=== PATIENT | female | born 1940 | race African-American/Black ===

== ENCOUNTER 2016-10-21 00:35 | Observation (INO) | payer OTHER ==
--- NOTE | 2016-10-21 01:17 | PDOC ---
History of Present Illness - History of Present Illness Initial Comments: 10/21/16 03:08 The patient is a 76 year old female with a PMHx of AFib, HTN who presents to the ED with a dog bite on her left hand. Patient states her dog jumped at her and she protected herself with her hands, and the dog subsequently bit her. He left thumb, third and fourth fingers had abrasions and lacerations. Her fourth finger was bleeding heavily, with a deep cut and swelling. She has no other complaints. <Celine Caldwell - Last Filed: 10/21/16 03:08> <Shira Pereyra - Last Filed: 10/21/16 07:06> <Angelica Casillas - Last Filed: 10/21/16 12:48> - General Stated Complaint: DOG BITE Time Seen by Provider: 10/21/16 01:17 Past History <Celine Caldwell - Last Filed: 10/21/16 03:08> - Past Medical History Cardiac Disorders: Yes (AF) HTN: Yes Suicide Attempt (Hx): No - Surgical History Abdominal Surgery: Yes (HERNIA) Orthopedic Surgery: Yes (right foot bunionectomy) - Immunization History Immunization Up to Date: Yes - Psycho/Social/Smoking Cessation Hx Anxiety: No Suicidal Ideation: No Smoking History: Never smoked Have you smoked in the past 12 months: No Hx Alcohol Use: No Drug/Substance Use Hx: No Substance Use Type: None Hx Substance Use Treatment: No <Shira Pereyra - Last Filed: 10/21/16 07:06> <Angelica Casillas - Last Filed: 10/21/16 12:48> - Past Medical History Allergies/Adverse Reactions: Allergies Allergy/AdvReac Type Severity Reaction Status Date / Time No Known Allergies Allergy Verified 07/24/16 12:49 Home Medications: Ambulatory Orders Atorvastatin Ca [Lipitor] 20 mg PO HS #30 tablet 06/21/16 Metoprolol Succinate [Toprol XL -] 25 mg PO DAILY #30 tab.sr.24h 06/21/16 Hydrocodone/Acetaminophen [[place] 5-325 Tablet] 1 each PO QID #20 tablet MDD 4 Tramadol HCl 50 mg PO BID PRN 07/18/16 Warfarin Sodium 6 mg PO HS 10/21/16 Review of Systems - Review of Systems Comments:: 10/21/16 03:08 GENERAL/CONSTITUTIONAL: No fever or chills. No weakness. HEAD, EYES, EARS, NOSE AND THROAT: No change in vision. No ear pain or discharge. No sore throat. CARDIOVASCULAR: No chest pain or shortness of breath. RESPIRATORY: No cough, wheezing, or hemoptysis. GASTROINTESTINAL: No nausea, vomiting, diarrhea or constipation. GENITOURINARY: No dysuria, frequency, or change in urination. MUSCULOSKELETAL: No joint or muscle swelling or pain. No neck or back pain. SKIN: Left finger abrasions and lacerations. No rash NEUROLOGIC: No headache, vertigo, loss of consciousness, or change in strength/ sensation. ENDOCRINE: No increased thirst. No abnormal weight change. HEMATOLOGIC/LYMPHATIC: No anemia, easy bleeding, or history of blood clots. ALLERGIC/IMMUNOLOGIC: No hives or skin allergy. <Celine Caldwell - Last Filed: 10/21/16 03:08> *Physical Exam - Vital Signs Last Vital Signs Temp Pulse Resp BP Pulse Ox 97.1 F L 68 20 146/84 98 10/21/16 01:25 10/21/16 01:25 10/21/16 01:25 10/21/16 01:25 10/21/16 01:25 - Physical Exam Comments: 10/21/16 03:09 GENERAL: Awake, alert, and fully oriented, in no acute distress HEAD: No signs of trauma EYES: PERRLA, EOMI, sclera anicteric, conjunctiva clear ENT: Auricles normal inspection, hearing grossly normal, nares patent, oropharynx clear without exudates. Moist mucosa NECK: Normal ROM, supple, no lymphadenopathy, JVD, or masses LUNGS: Breath sounds equal, clear to auscultation bilaterally. No wheezes, and no crackles HEART: Regular rate and rhythm, normal S1 and S2, no murmurs, rubs or gallops ABDOMEN: Soft, nontender, normoactive bowel sounds. No guarding, no rebound. No masses EXTREMITIES: Normal range of motion, no edema. No clubbing or cyanosis. No cords, erythema, or tenderness NEUROLOGICAL: Cranial nerves II through XII grossly intact. Normal speech, normal gait SKIN: Swelling and large laceration that is deep with warmth dorsal aspect on left index finger at PIP point. Proximal phalanx puncture wound on left thumb. Two puncture wounds on dorsal aspect of third finger. Warm, Dry, normal turgor, no rashes or lesions noted. <Celine Caldwell - Last Filed: 10/21/16 03:08> - Vital Signs Last Vital Signs Temp Pulse Resp BP Pulse Ox 98.1 F 82 18 156/74 97 10/21/16 06:00 10/21/16 08:14 10/21/16 08:14 10/21/16 08:14 10/21/16 08:14 <Angelica Casillas - Last Filed: 10/21/16 12:48> ED Treatment Course - LABORATORY CBC & Chemistry Diagram: 10/21/16 02:15 10/21/16 02:15 - ADDITIONAL ORDERS Additional order review: Laboratory Results 10/21/16 10/21/16 10/21/16 02:20 02:15 02:15 INR 1.73 H D PTT (Actin FS) 45.4 H D Sodium 140 Potassium 4.0 Chloride 103 Carbon Dioxide 28 Anion Gap 9 BUN 18 Creatinine 0.7 Creat Clearance w eGFR > 60 Random Glucose 84 Calcium 9.4 Total Bilirubin 0.4 AST 22 ALT 28 Alkaline Phosphatase 102 D Total Protein 7.6 Albumin 3.9 D 10/21/16 02:15 RBC 4.67 D MCV 73.2 L MCHC 31.2 L RDW 17.7 H D MPV 8.6 D Neutrophils % 61.7 Lymphocytes % 24.7 D Monocytes % 9.8 Eosinophils % 2.9 D Basophils % 0.9 <Celine Caldwell - Last Filed: 10/21/16 03:08> - LABORATORY CBC & Chemistry Diagram: 10/21/16 02:15 10/21/16 02:15 <Shira Pereyra - Last Filed: 10/21/16 07:06> - LABORATORY CBC & Chemistry Diagram: 10/21/16 02:15 10/21/16 02:15 - ADDITIONAL ORDERS Additional order review: Laboratory Results 10/21/16 10/21/16 10/21/16 02:20 02:15 02:15 INR 1.73 H D PTT (Actin FS) 45.4 H D Sodium 140 Potassium 4.0 Chloride 103 Carbon Dioxide 28 Anion Gap 9 BUN 18 Creatinine 0.7 Creat Clearance w eGFR > 60 Random Glucose 84 Calcium 9.4 Total Bilirubin 0.4 AST 22 ALT 28 Alkaline Phosphatase 102 D Total Protein 7.6 Albumin 3.9 D 10/21/16 02:15 RBC 4.67 D MCV 73.2 L MCHC 31.2 L RDW 17.7 H D MPV 8.6 D Neutrophils % 61.7 Lymphocytes % 24.7 D Monocytes % 9.8 Eosinophils % 2.9 D Basophils % 0.9 - Medications Given in the ED: ED Medications Discontinued Medications Generic Name Dose Route Start Last Admin Trade Name Freq PRN Reason Stop Dose Admin Diphtheria/Tetanus/Acell Pertussis 0.5 ml 10/21/16 05:29 10/21/16 06:08 Adacel Adolescent/Adult - IM 10/21/16 05:30 0.5 ml .ONCE ONE Administration Ampicillin Sodium/Sulbactam 100 mls @ 200 mls/hr 10/21/16 02:10 10/21/16 05:27 Sodium 1.5 gm/ Sodium Chloride IVPB 10/21/16 02:39 200 mls/hr ONCE ONE Administration Vancomycin HCl 1,000 mg/ 250 mls @ 250 mls/hr 10/21/16 02:10 10/21/16 02:33 Dextrose IVPB 10/21/16 03:09 250 mls/hr ONCE ONE Administration Protocol Ketorolac Tromethamine 30 mg 10/21/16 08:19 10/21/16 08:46 Toradol Injection - IVPUSH 10/21/16 08:20 30 mg ONCE ONE Administration Morphine Sulfate 2 mg 10/21/16 03:57 10/21/16 04:14 Morphine Injection - IVPUSH 10/21/16 03:58 2 mg ONCE ONE Administration <Angelica Casillas - Last Filed: 10/21/16 12:48> Medical Decision Making - Medical Decision Making 10/21/16 07:06 Pt comes with dog bite to her left hand. 4th finger is sweollen and mangled. 6hrs later, I am still awaiting XR finger and CXR Labs are normal, however, pt will require admission for IV abx. She received unasyn and vancomycin I will sign her out to the day ER doc, who will check xrays and admit patient to the hospitalist. Depending on XRAY, ortho vs plastic surgery will be contacted. <Shira ePreyra - Last Filed: 10/21/16 07:06> - Medical Decision Making 10/21/16 12:45 Received sign out from Dr Pereyra to f/u xray and admit to hospital for IV antibiotics after pt was bitten by the family dog. Pt is rt handed, bite is on her left hand, the 4th finger has open wound around the joint that was irrigated by NK Jailene but wound is directly over the joint, sutures not applied, wound is about 1 in in length with a piece of skin missing, dsg applied to area and pt admitted for iv antibiotics, no fx noted on xray. 10/21/16 12:47 <Angelica Casillas - Last Filed: 10/21/16 12:48> *DC/Admit/Observation/Transfer - Attestations Scribe Attestion: 10/21/16 03:09 Documentation prepared by Celine Caldwell, acting as medical assistant ob gyn for Shira Pereyra MD. <Celine Caldwell - Last Filed: 10/21/16 03:08> <Shira Pereyra - Last Filed: 10/21/16 07:06> - Discharge Dispostion Admit: Yes <Angelica Casillas - Last Filed: 10/21/16 12:48> Diagnosis at time of Disposition: Dog bite - Discharge Dispostion Condition at time of disposition: Stable - Referrals
[2016-10-21 01:27] VITALS: BMI 24.6
[2016-10-21] MEDS ORDERED: AMPICILLIN NA/SULBACTAM NA 1.5 GM in SODIUM CHLORIDE 100 ML IVPB ONE (02:10)
[2016-10-21] MEDS ORDERED: VANCOMYCIN 1,000 MG in DEXTROSE 5%-WATER - 250 ML IVPB ONE (02:10)
[2016-10-21] MEDS ORDERED: VANCOMYCIN 1 GRAM (PRE-DOCKED) 250 ML IVPB ONE (02:26)
[2016-10-21 02:37] LABS: BASOPHIL 0.9 % (0-2.0); EOSINOPHIL 2.9 % (0-4.5); MCH 22.8 pg (25.7-33.7); MCHC 31.2 g/dl (32.0-36.0); MEAN CELL VOLUME 73.2 fl (80-96); MEAN PLT VOLUME 8.6 fl (7.5-11.1); NEUTROPHILS 61.7 % (42.8-82.8); PLATELET COUNT 290 K/MM3 (134-434); RDW 17.7 % (11.6-15.6); WHITE BLOOD COUNT 7.7 K/mm3 (4.0-10.0)
[2016-10-21 02:50] LABS: INR 1.73 (0.82-1.09); PROTHROMBIN TIME (PATIENT) 19.3 SEC (9.98-11.88)
[2016-10-21 03:01] LABS: ALBUMIN 3.9 g/dl (3.4-5.0); ANION GAP 9 (8-16); CALCIUM 9.4 mg/dL (8.5-10.1); CO2 28 mmol/L (21-32); CREATININE 0.7 mg/dL (0.55-1.02); GLUCOSE,RANDOM 84 mg/dL (74-106); SGOT/AST 22 U/L (15-37); SGPT/ALT 28 U/L (12-78)
[2016-10-21 03:03] LABS: ALK PHOS 102 U/L (45-117); BILIRUBIN,TOTAL 0.4 mg/dL (0.2-1.0); TOT PROT 7.6 g/dl (6.4-8.2)
[2016-10-21] MEDS ORDERED: morphine CARPU-JECT 2 MG/1 ML DISP.SYRIN IVPUSH ONE (03:57)
[2016-10-21] MEDS ORDERED: morphine CARPU-JECT 2 MG/1 ML DISP.SYRIN ONE (04:11)
[2016-10-21] MEDS ORDERED: DIPHTH,PERTUSS(ACELL),TET VAC 0.5 ML VIAL IM ONE (05:29)
[2016-10-21] MEDS ORDERED: KETOROLAC TROMETHAMINE 30 MG/1 ML VIAL IVPUSH ONE (08:19)
[2016-10-21] MEDS ORDERED: KETOROLAC TROMETHAMINE 30 MG/1 ML VIAL ONE (08:43)
[2016-10-21] MEDS ORDERED: ZOLPIDEM TARTRATE 5 MG TABLET PO PRN (11:16)
[2016-10-21] MEDS ORDERED: ACETAMINOPHEN 325 MG TABLET (FP) PO PRN (11:16)
[2016-10-21] MEDS ORDERED: KETOROLAC TROMETHAMINE 15 MG/ML VIAL IVPUSH PRN (11:20)
[2016-10-21] MEDS ORDERED: METOPROLOL SUCCINATE 50 MG TAB.SR.24H (FP) ONE (11:33)
[2016-10-21] MEDS ORDERED: PANTOPRAZOLE 40 MG TABLET (FP) ONE (11:33)
[2016-10-21] MEDS: METOPROLOL SUCCINATE 25 MG TAB.SR.24H (FP) PO SCH (11:39)
[2016-10-21] MEDS: PANTOPRAZOLE 20 MG TABLET (FP) PO SCH (11:39)
--- NOTE | 2016-10-21 11:48 | HP ---
CHIEF COMPLAINT: PCP: HISTORY OF PRESENT ILLNESS: 76 year old presents today after being bitten by her sons dog at home. Reports bite to left index finger. She decided to seek medical help because she noticed swelling and bleeding from the site of laceration. ER course was notable for: (1) XRAY (2) Tetanus shot (3) Recent Travel: NO PAST MEDICAL HISTORY: A FIB PAST SURGICAL HISTORY: Right Ovarian Cyst Dental Surgery Social History: Smoking:NO Alcohol:NO Drugs: NO Family History: HTN parents Allergies No Known Allergies Allergy (Verified 07/24/16 12:49) HOME MEDICATIONS: Home Medications Medication Instructions Recorded Atorvastatin Ca [Lipitor] 20 mg PO HS #30 tablet 06/21/16 Metoprolol Succinate [Toprol XL -] 25 mg PO DAILY #30 tab.sr.24h 06/21/16 Warfarin Na [Coumadin -] 9 mg PO HS #30 tablet 06/21/16 Hydrocodone/Acetaminophen [[place] 1 each PO QID #20 tablet MDD 4 07/18/16 5-325 Tablet] Tramadol HCl 50 mg PO BID PRN 07/18/16 REVIEW OF SYSTEMS CONSTITUTIONAL: Absent: fever, chills, diaphoresis, generalized weakness, malaise, loss of appetite, weight change HEENT: Absent: rhinorrhea, nasal congestion, throat pain, throat swelling, difficulty swallowing, mouth swelling, ear pain, eye pain, visual changes CARDIOVASCULAR: Absent: chest pain, syncope, palpitations, irregular heart rate, lightheadedness , peripheral edema RESPIRATORY: Absent: cough, shortness of breath, dyspnea with exertion, orthopnea, wheezing, stridor, hemoptysis GASTROINTESTINAL: Absent: abdominal pain, abdominal distension, nausea, vomiting, diarrhea, constipation, melena, hematochezia GENITOURINARY: Absent: dysuria, frequency, urgency, hesitancy, hematuria, flank pain, genital pain MUSCULOSKELETAL: Absent: myalgia, arthralgia, Left index MCP swelling , SKIN: Laceration over left index PIP joint , 1 cm , bleeding HEMATOLOGIC/IMMUNOLOGIC: Absent: easy bleeding, easy bruising, lymphadenopathy, frequent infections ENDOCRINE: Absent: unexplained weight gain, unexplained weight loss, heat intolerance, cold intolerance NEUROLOGIC: Absent: headache, focal weakness or paresthesias, dizziness, unsteady gait, seizure, mental status changes, bladder or bowel incontinence PSYCHIATRIC: Absent: anxiety, depression, suicidal or homicidal ideation, hallucinations. PHYSICAL EXAMINATION GENERAL: Awake, alert, and fully oriented, in no acute distress. HEAD: Normal with no signs of trauma. EYES: Pupils equal, round and reactive to light, extraocular movements intact, sclera anicteric, conjunctiva clear. No lid lag. EARS, NOSE, THROAT: Ears normal, nares patent, oropharynx clear without exudates. Moist mucous membranes. NECK: Normal range of motion, supple without lymphadenopathy, JVD, or masses. LUNGS: Breath sounds equal, clear to auscultation bilaterally. No wheezes, and no crackles. No accessory muscle use. HEART: Regular rate and rhythm, normal S1 and S2 without murmur, rub or gallop. ABDOMEN: Soft, nontender, not distended, normoactive bowel sounds, no guarding, no rebound, no masses. No hepatomegaly or splenomegaly. MUSCULOSKELETAL: Left index MCP swelling UPPER EXTREMITIES: 2+ pulses, warm, well-perfused. Laceration over left index PIP joint , 1 cm , bleeding. NV intact. Limited ROM due to pain LOWER EXTREMITIES: 2+ pulses, warm, well-perfused. No calf tenderness. No peripheral edema. NEUROLOGICAL: Cranial nerves II-XII intact. Normal speech. Normal gait. PSYCHIATRIC: Cooperative. Good eye contact. Appropriate mood and affect. SKIN: Warm, dry, normal turgor, no rashes or lesions noted. CBC, BMP 10/21/16 02:15 10/21/16 02:15 Hand XR - no fractures , no gas ASSESSMENT/PLAN: 1. Left index finger dog bite - NV intact, laceration needs to be irrigated and sutured. This was discussed with EDP. NO signs of cellulitis now, however there is mild erythema over MCP and bleeding ( on coumadin) . IV vancomycin and Unasyn was given in ER. No known risk for MRSA. Tetanus shot was given. - will hospitalize for observation - frequent Neurovascular checks - laceration to be sutured - monitor for bleeding and cellulitis - demarcate the area of erythema over MCP - oral Augmentin BID - if improves and no signs of cellulitis may d/c in am for further OP follow up with Hand Surgery 2. History of AFIB - rate controlled , INR is subtheraputic . - coumadin 10mg today and will repeat INR in am - c/w metoprolol 4. Pain control with toradol and tylenol PRN. 5. GI ppx with Pantoprazole 6. DVT PPX - already on anticoagulation Visit type - Emergency Visit Emergency Visit: Yes ED Registration Date: 10/21/16 Care time: The patient presented to the Emergency Department on the above date and was hospitalized for further evaluation of their emergent condition. - New Patient This patient is new to me today: Yes Date on this admission: 10/21/16 - Critical Care Critical Care patient: No
[2016-10-21] MEDS ORDERED: PNEUMOC 13-VAL CONJ-DIP CRM/PF 0.5 ML DISP.SYRIN IM ONE (12:30)
[2016-10-21] MEDS: AMOX TR/POT CLAV 875MG/125MG TABLETS (FP) PO SCH (17:17)
[2016-10-21] MEDS ORDERED: WARFARIN NA 3 MG TABLET PO SCH ×2 (18:00)
[2016-10-21] MEDS ORDERED: ATORVASTATIN CA 20 MG TABLET (FP) PO SCH (22:00)
[2016-10-22 05:54] VITALS: TEMP 97.9
[2016-10-22] MEDS: AMOX TR/POT CLAV 875MG/125MG TABLETS (FP) PO SCH (08:05)
[2016-10-22 08:57] LABS: MCH 23.3 pg (25.7-33.7); MCHC 31.6 g/dl (32.0-36.0); MEAN CELL VOLUME 73.7 fl (80-96); MEAN PLT VOLUME 8.4 fl (7.5-11.1); PLATELET COUNT 245 K/MM3 (134-434); RDW 17.7 % (11.6-15.6); WHITE BLOOD COUNT 9.6 K/mm3 (4.0-10.0)
[2016-10-22 09:09] LABS: INR 2.31 (0.82-1.09); PROTHROMBIN TIME (PATIENT) 25.8 SEC (9.98-11.88)
[2016-10-22] MEDS: METOPROLOL SUCCINATE 25 MG TAB.SR.24H (FP) PO SCH (10:11)
[2016-10-22] MEDS: PANTOPRAZOLE 20 MG TABLET (FP) PO SCH (10:11)
[2016-10-22 10:47] VITALS: BP 131/97; PULSE 77
--- NOTE | 2016-10-22 10:54 | DS ---
Physical Exam: SUBJECTIVE: Patient seen and examined OBJECTIVE: Vital Signs Period Temp Pulse Resp BP Sys/Neri Pulse Ox Last 24 Hr 97.6 F-98.8 F 60-119 16-18 101-173/40-97 98 PHYSICAL EXAM GENERAL: The patient is awake, alert, and fully oriented, in no acute distress. HEAD: Normal with no signs of trauma. NECK: Trachea midline, full range of motion, supple. LUNGS: Breath sounds equal, clear to auscultation bilaterally, no wheezes, no crackles, no accessory muscle use. HEART: Regular rate and rhythm, S1, S2 without murmur, rub or gallop. ABDOMEN: Soft, nontender, nondistended, normoactive bowel sounds, no guarding, no rebound, no hepatosplenomegaly, no masses. EXTREMITIES: 2+ pulses, warm, well-perfused, no edema. Decreased swelling of left hand. NEUROLOGICAL: Cranial nerves II through XII grossly intact. Normal speech, gait not observed. SKIN: Warm, dry, normal turgor. Laceration of left second finger with minimal erythema of finger. No bleeding or drainage from wound. LABS Laboratory Results - last 24 hr 10/22/16 10/22/16 07:50 07:50 WBC 9.6 RBC 4.33 Hgb 10.1 L Hct 31.9 L MCV 73.7 L MCHC 31.6 L RDW 17.7 H Plt Count 245 MPV 8.4 INR 2.31 H D HOSPITAL COURSE: Date of Admission:10/21/16 Date of Discharge: 10/22/16 Minutes to complete discharge: 30 Discharge Summary Reason For Visit: DOG BITE Current Active Problems Cellulitis of finger of left hand (Acute) Dog bite (Acute) Anxiety and depression (Chronic) Chronic pain in right shoulder (Chronic) GERD (gastroesophageal reflux disease) (Chronic) HLD (hyperlipidemia) (Chronic) HTN (hypertension) (Chronic) Paroxysmal atrial fibrillation (Chronic) Rheumatoid arthritis (Chronic) Hospital Course: This is a 76-year-old woman who presented to the ER on the morning of October 21 after her dog bit her left hand. She sustained a laceration to her left second finger and minor wounds to her left first and third fingers. X-ray of the left fingers showed degenerative changes, loss of bone density, soft tissue swelling involving the second finger, no fracture, subluxation or foreign body. She was treated with Unasyn and Vancomycin, and she was given a tetanus booster. All the wounds were cleansed with Betadine and irrigated with sterile saline. No sutures were indicated. Steri-strip and a Telfa dressing were applied to the left second finger laceration. She was placed in observation. She was treated with Augmentin and her usual medications were continued. The next day, the dressings were removed. All wounds appeared clean. There was no bleeding noted. Swelling and erythema were noted to have improved significantly. The left second finger laceration was irrigated with sterile saline and cleaned with Betadine. One Steri-strip was noted. A clean Telfa dressing was applied. Bacitracin was applied to the wounds on the first and third fingers. She is being discharged home on October 22. She will complete 10 days of Augmentin. She is advised to keep her left second finger dry and to apply Bacitracin to her left first and third fingers twice a day. She is advised to see her primary care provider tomorrow. Condition: Stable - Instructions Diet, Activity, Other Instructions: You may resume activity as tolerated and follow a low sodium diet. Apply Bacitracin to the wounds on your left 1st and 3rd fingers twice a day. Keep your left 2nd finger dry. Please call your primary care provider's office for an appointment to be seen tomorrow. Referrals: Manuel Acosta PA [Primary Care Provider] - 10/23/16 Disposition: HOME - Home Medications Comprehensive Discharge Medication List: Ambulatory Orders Atorvastatin Ca [Lipitor] 20 mg PO HS #30 tablet 06/21/16 Metoprolol Succinate [Toprol XL -] 25 mg PO DAILY #30 tab.sr.24h 06/21/16 Hydrocodone/Acetaminophen [[place] 5-325 Tablet] 1 each PO QID #20 tablet MDD 4 Tramadol HCl 50 mg PO BID PRN 07/18/16 Warfarin Sodium 6 mg PO HS 10/21/16 Amox-Tr/K Cl [Augmentin 875-125mg Tablet -] 1 tab PO BID@0800,1730 #18 tablet This patient is new to me today: Yes Date on this admission: 10/22/16 Emergency Visit: Yes ED Registration Date: 10/21/16 Care time: The patient presented to the Emergency Department on the above date and was hospitalized for further evaluation of their emergent condition. Critical Care patient: No - Discharge Referral Referred to [facility] No
[2016-10-22] MEDS ORDERED: BACITRACIN 30 GM TUBE TOPICAL OINTMENT TP SCH (11:15)
== END 2016-10-22 11:36 | disposition home or self-care (01) ==
LOC: JER 00:35 → JERBED 09:39 → J6S 11:58
PROVIDERS: ADMIT Internal Medicine; ATTEND Internal Medicine
DX: S61.251A Open bite of left index finger without damage to nail, initial encounter (principal); S61.211A Laceration without foreign body of left index finger without damage to nail, initial encounter; W54.0XXA Bitten by dog, initial encounter; Y93.89 Activity, other specified; Y92.098 Other place in other non-institutional residence as the place of occurrence of the external cause; I48.91 Unspecified atrial fibrillation; F41.8 Other specified anxiety disorders; K21.9 Gastro-esophageal reflux disease without esophagitis; E78.5 Hyperlipidemia, unspecified; M06.80 Other specified rheumatoid arthritis, unspecified site
CPT/HCPCS: 36415; 71020-TC; 73140-TC-LT; 80053; 85025; 85027; 85610; 85730; 90670; 99285-25; G0378

== ENCOUNTER 2016-11-04 00:12 | Emergency (ER) | payer OTHER ==
[2016-11-04 00:31] VITALS: BP 135/69; PULSE 86; TEMP 98.2; BMI 24.0
[2016-11-04 00:54] LABS: BASOPHIL 1.1 % (0-2.0); EOSINOPHIL 1.9 % (0-4.5); MEAN PLT VOLUME 7.8 fl (7.5-11.1); NEUTROPHILS 62.3 % (42.8-82.8); PLATELET COUNT 315 K/MM3 (134-434); RDW 18.2 % (11.6-15.6); WHITE BLOOD COUNT 8.3 K/mm3 (4.0-10.0)
[2016-11-04 01:09] LABS: INR 1.38 (0.82-1.09); PROTHROMBIN TIME (PATIENT) 15.3 SEC (9.98-11.88)
[2016-11-04 01:19] LABS: ALBUMIN 3.5 g/dl (3.4-5.0); ANION GAP 9 (8-16); BILIRUBIN,TOTAL 0.3 mg/dL (0.2-1.0); CALCIUM 9.1 mg/dL (8.5-10.1); CO2 28 mmol/L (21-32); CREATININE 0.6 mg/dL (0.55-1.02); GLUCOSE,RANDOM 138 mg/dL (74-106); SGOT/AST 17 U/L (15-37); SGPT/ALT 21 U/L (12-78); TOT PROT 6.7 g/dl (6.4-8.2)
[2016-11-04 01:21] LABS: ALK PHOS 84 U/L (45-117); TROPONIN I 0.02 ng/ml (0.00-0.05)
--- NOTE | 2016-11-04 02:40 | PDOC ---
History of Present Illness - General Chief Complaint: Palpitations Stated Complaint: PALPITATIONS Time Seen by Provider: 11/04/16 00:30 History Source: Patient Exam Limitations: No Limitations - History of Present Illness Initial Comments: 11/04/16 02:35 76yo Female patient presents to ED with daughter c/o palpitations. Patient states eating dinner very late, after eating dinner she began feeling palpitations. She reports taking her blood pressure medications and coumadin, but wanted to come to ED for evaluation. Patient denies CP, chest pressure, hemoptysis, rectal bleeding, hematuria, fever, abd pain, n/v/d, constipation, back pain, diff breathing, rash, or any other complaints at this time. Cardiology: ASHISH Acosta. Presenting Symptoms: Other (Palpitations) Timing/Duration: reports: intermittent Severity/Quality: reports: mild Location: denies: substernal, central, epigastric, shoulder, back, abdomen, other Chest Pain Radiation: denies: no radiation, jaw, arms, neck, shoulders, back, sternal notch, epigastric, other Activities at Onset: denies: none, exertion, emotional upset, rest, sleep, no specific activity, eating, working, sexual intercourse, other Prior Chest Pain/Cardiac Workup: denies: No prior chest pain, No prior cardiac workup, Non-cardiac, Angina, Cardiac Cath, Cardiolye Scan, Echocardiography, Heart Attack, Pulmonary Embolism, Stress Test, Thallium Scan, Other Modifying Factors: worse with: antacids, breathing, coughing, defecating, eating , exercise, lying down, morphine, movement, nitroglycerin, oxygen, palpation, rest, other Nitro Today/Relief: No: no nitro taken today, 0.4 mg x 1, 0.4 mg x 2, 0.4 mg x 3 , 0.4 mg x 4, provided by EMS, provided by ED, provided at home, no relief, mild relief, complete relief ASA Contraindications (Core Measure): Yes: Receiving Warfarin. No: Allergy, Other, Active Blding w/i 24 hrs., Plavix Past History - Travel Traveled outside of the country in the last 30 days: No Close contact w/someone who was outside of country & ill: No - Past Medical History Allergies/Adverse Reactions: Allergies Allergy/AdvReac Type Severity Reaction Status Date / Time No Known Allergies Allergy Verified 11/04/16 00:29 Home Medications: Ambulatory Orders Atorvastatin Ca [Lipitor] 20 mg PO HS #30 tablet 06/21/16 Metoprolol Succinate [Toprol XL -] 25 mg PO DAILY #30 tab.sr.24h 06/21/16 Hydrocodone/Acetaminophen [[place] 5-325 Tablet] 1 each PO QID #20 tablet MDD 4 Tramadol HCl 50 mg PO BID PRN 07/18/16 Warfarin Sodium 6 mg PO HS 10/21/16 Amox-Tr/K Cl [Augmentin 875-125mg Tablet -] 1 tab PO BID@0800,1730 #18 tablet Cardiac Disorders: Yes (AF) HTN: Yes Suicide Attempt (Hx): No - Surgical History Abdominal Surgery: Yes (HERNIA) Orthopedic Surgery: Yes (RT FOOT) - Immunization History Immunization Up to Date: Yes - Psycho/Social/Smoking Cessation Hx Anxiety: No Suicidal Ideation: No Smoking History: Never smoked Have you smoked in the past 12 months: No Information on smoking cessation initiated: No Hx Alcohol Use: No Drug/Substance Use Hx: No Substance Use Type: None Hx Substance Use Treatment: No Cardiac Specific PMH - Complaint Specific PMHX Abdominal Aortic Aneurysm: No Angina: No Cardiac Arrhythmia: No Cardiac Stent: No GERD: No Myocardial Infarction: No Pacemaker: No Pulmonary Embolus: No Valvular Heart Disease: No Peripheral Vascular Disease: No Review of Systems - Review of Systems Able to Perform ROS?: Yes Is the patient limited [place]an proficient: No Constitutional: No: Chills, Fever HEENTM: No: Blurred Vision, Double Vision, Nose Bleeding Respiratory: No: Cough, Orthopnea, Shortness of Breath, Stridor, Wheezing, Hemoptysis Cardiac (ROS): Yes: Palpitations. No: Chest Pain, Edema, Irregular Heart Rate, Lightheadedness, Syncope, Chest Tightness ABD/GI: No: Constipated, Diarrhea, Nausea, Poor Appetite, Poor Fluid Intake, Rectal Bleeding, Vomiting, Abdominal cramping, Tarry Stools : No: Dysuria, Discharge, Frequency, Flank Pain, Hematuria, Pain, Urgency Musculoskeletal: No: Back Pain Integumentary: No: Bruising, Erythema, Pallor, Rash Neurological: No: Headache, Numbness, Paresthesia, Seizure, Tingling, Tremors, Weakness, Unsteady Gait, Ataxia, Dizziness Hematologic/Lymphatic: Yes: Blood Clots, Easy Bleeding. No: Easy Bruising All Other Systems: Reviewed and Negative *Physical Exam - Vital Signs Last Vital Signs Temp Pulse Resp BP Pulse Ox 98.2 F 86 20 135/69 96 11/04/16 00:29 11/04/16 00:29 11/04/16 00:29 11/04/16 00:29 11/04/16 00:29 - Physical Exam General Appearance: Yes: Nourished, Appropriately Dressed. No: Apparent Distress, Mild Distress, Moderate Distress, Severe Distress HEENT: positive: EOMI, SHERICE, Normal ENT Inspection, Normal Voice, Symmetrical, TMs Normal, Scleral Icterus (L). negative: Pharyngeal Erythema, Tonsillar Exudate, Tonsillar Erythema, Nasal Congestion, Rhinorrhea, TM Bulging, TM Dull, TM Erythema Neck: positive: Trachea midline, Supple. negative: Rigid Respiratory/Chest: positive: Lungs Clear, Normal Breath Sounds. negative: Respiratory Distress, Accessory Muscle Use, Labored Respiration, Rapid RR, Wheezing Cardiovascular: positive: Regular Rhythm, Regular Rate Gastrointestinal/Abdominal: positive: Normal Bowel Sounds, Soft. negative: Distended, Guarding, Rebound, Tenderness Musculoskeletal: positive: Normal Inspection. negative: CVA Tenderness Extremity: positive: Normal Capillary Refill, Normal Inspection, Normal Range of Motion Integumentary: positive: Normal Color, Dry, Warm. negative: Pale, Rash, Swelling Neurologic: positive: blood bank coordinator II-XII NML intact, Fully Oriented, Alert, Normal Mood/ Affect, Normal Response, Motor Strength 5/5 Heart Score/ECG Review - History History: Slightly suspicious - Electrocardiogram EKG: Normal - Age Age: >/= 65 - Risk Factors Risk Factors Heart Score: Yes Hx Hypercholesterolemia, Yes Hx Hypertension Based on the list above the patient has:: 1-2 risk factors - Troponin Troponin: </= normal limit - Score Heart Score - Total: 3 - ECG Impressions Normal ECG: Yes Non-specific ST Elevation: No Ischemic Changes: No Bradycardia: No Torsades sravanthi Pointes: No WPW: No Comment:: 11/04/16 02:45 NSR- No ST elevations. ED Treatment Course - LABORATORY CBC & Chemistry Diagram: 11/04/16 00:36 11/04/16 00:36 - ADDITIONAL ORDERS Additional order review: Laboratory Results 11/04/16 11/04/16 00:36 00:36 INR 1.38 H D Sodium 143 Potassium 3.6 Chloride 106 Carbon Dioxide 28 Anion Gap 9 BUN 22 H D Creatinine 0.6 Creat Clearance w eGFR > 60 Random Glucose 138 H D Calcium 9.1 Total Bilirubin 0.3 D AST 17 D ALT 21 D Alkaline Phosphatase 84 Creatine Kinase 100 Troponin I 0.02 B-Natriuretic Peptide 139.42 H Total Protein 6.7 Albumin 3.5 11/04/16 00:36 RBC 4.21 MCV 72.0 L MCHC 32.0 RDW 18.2 H MPV 7.8 Neutrophils % 62.3 Lymphocytes % 26.4 Monocytes % 8.3 Eosinophils % 1.9 Basophils % 1.1 - RADIOLOGY Radiology Studies Ordered: Category Date Time Status CHEST PA & LAT [RAD] Stat Radiology 11/04/16 00:30 Taken *DC/Admit/Observation/Transfer Diagnosis at time of Disposition: Heart palpitations - Discharge Dispostion Disposition: HOME Condition at time of disposition: Improved Admit: No - Referrals Referrals: Kumar Early MD [Primary Care Provider] - - Patient Instructions Printed Discharge Instructions: DI for Palpitations Additional Instructions: FOLLOW UP WITH YOUR [employer] DRIVER ON SUNDAY. CALL TO SCHEDULE APPOINTMENT. CONTINUE TAKING YOUR MEDICATIONS PRESCRIBED. RETURN TO EMERGENCY DEPARTMENT IF YOU DEVELOP SUDDEN ONSET OF TROUBLE BREATHING, RECTAL BLEEDING, BLOOD IN SPUTUM, CHEST PAINS, NAUSEA W/ VOMITING OR ANY OTHER COMPLAINTS FOR FURTHER EVALUATION. Print Language: SLOVAK
--- NOTE | 2016-11-04 14:45 | EKG ---
Test Reason : Blood Pressure : / mmHG Vent. Rate : 072 BPM Atrial Rate : 072 BPM P-R Int : 154 ms QRS Dur : 094 ms QT Int : 382 ms P-R-T Axes : 056 041 043 degrees QTc Int : 418 ms NORMAL SINUS RHYTHM NONSPECIFIC ST ABNORMALITY NONSPECIFIC INTRAVENTRICULAR CONDUCTION DEFECT ABNORMAL ECG WHEN COMPARED WITH ECG OF 18-JUL-2016 04:36, NO SIGNIFICANT CHANGE WAS FOUND Confirmed by YASEMIN SEO MD ([id number]) on 11/04/2016 2:44:47 PM Referred By: Confirmed By:YASEMIN SEO MD
== END 2016-11-04 03:06 | disposition home or self-care (01) ==
LOC: JER 00:12
DX: R00.2 Palpitations (principal); I48.91 Unspecified atrial fibrillation; I10 Essential (primary) hypertension; Z79.01 Long term (current) use of anticoagulants; Z79.84 Long term (current) use of oral hypoglycemic drugs
CPT/HCPCS: 36415; 71020-TC; 80053; 82550; 83880; 84484; 85025; 85610; 93005; 93010; 99281-25

== ENCOUNTER 2017-07-23 20:46 | Emergency (ER) | payer OTHER ==
--- NOTE | 2017-07-23 20:52 | PDOC ---
Rapid Medical Evaluation Time Seen by Provider: 07/23/17 20:49 Medical Evaluation: Allergies Allergy/AdvReac Type Severity Reaction Status Date / Time No Known Allergies Allergy Verified 11/04/16 00:29 07/23/17 20:49 I have performed a brief in person evaluation of this patient. The patient presents with chief complaint of : cough headache productive phlegm saw PMD yesterday Pertinent PE findings: none I have ordered the following: chest xray The patient will proceed to the ER for further evaluation. Discharge Disposition - Referrals Referrals: Sulema Montgomery MD [Primary Care Provider] - - Patient Instructions - Post Discharge Activity
[2017-07-23 20:53] VITALS: BP 182/97; PULSE 86; TEMP 98.1; BMI 24.7
[2017-07-23] MEDS ORDERED: ALBUTEROL SO4 2.5/IPRATROPIUM 0.5 INH SOL 3 ML VIAL.NEB. NEB ONE ×2 (21:27→21:31)
[2017-07-23] MEDS ORDERED: ONDANSETRON *ODT* 4 MG TABLET SL ONE (21:31)
--- NOTE | 2017-07-23 21:31 | PDOC ---
History of Present Illness - General History Source: Patient Exam Limitations: No Limitations - History of Present Illness Initial Comments: 07/23/17 21:51 Patient is a 76 year old female with a past medical history of A FIB, who presents to the ED with complaints of SOB that began this afternoon. Patient reports experiencing Patient reports experiencing productive cough with phlegm, nausea, vomiting and post nasal drip 1 week ago with no signs of subsiding. She reports going to PCP this morning for cold symptoms but states she left appointment feeling worse than before. Patient reports experiencing SOB while in ED waiting for X ray. Denies vision change, Headache. Denies dizziness, lightheadedness. Denies chills. Denies contact with sick individuals, out of state travel. Allergies: None Social history: No smoking. No alcohol. No illicit drugs. Surgical history: Right Ovarian Cyst, Dental Surgery PMD: Dr. Montgomery <Jeremiah Guillory - Last Filed: 07/23/17 21:51> <Elsa Corey - Last Filed: 07/23/17 22:50> - General Chief Complaint: Respiratory Stated Complaint: VOMITING Time Seen by Provider: 07/23/17 20:49 Past History <Jeremiah Guillory - Last Filed: 07/23/17 21:51> - Past Medical History Cardiac Disorders: Yes (AF) COPD: No HTN: Yes Hypercholesterolemia: Yes - Surgical History Abdominal Surgery: Yes (HERNIA) Orthopedic Surgery: Yes (RT FOOT) - Immunization History Immunization Up to Date: Yes - Suicide/Smoking/Psychosocial Hx Smoking History: Never smoked Have you smoked in the past 12 months: No Hx Alcohol Use: No Drug/Substance Use Hx: No Substance Use Type: None Hx Substance Use Treatment: No <Elsa Corey - Last Filed: 07/23/17 22:50> - Past Medical History Allergies/Adverse Reactions: Allergies Allergy/AdvReac Type Severity Reaction Status Date / Time No Known Allergies Allergy Verified 07/23/17 20:50 Home Medications: Ambulatory Orders Atorvastatin Ca [Lipitor] 20 mg PO HS #30 tablet 06/21/16 Metoprolol Succinate [Toprol XL -] 25 mg PO DAILY #30 tab.sr.24h 06/21/16 Rivaroxaban [Xarelto -] 1 tab PO HS 04/18/17 Albuterol Sulfate Inhaler - [Ventolin HFA Inhaler -] 1 - 2 inh PO Q4H #1 inhaler 07/23/17 Azithromycin [Zithromax 250mg Tablets -] 250 mg PO UTDICT #6 tab 07/23/17 Chlorpheniramine/Dextromethorp [Coricidin Hbp Cough & Cold Tab] 1 each PO Q6H # 20 tablet 07/23/17 Review of Systems - Review of Systems Comments:: 07/23/17 21:51 GENERAL/CONSTITUTIONAL: No fever or chills. No weakness. HEAD, EYES, EARS, NOSE AND THROAT: No change in vision. No ear pain or discharge. No sore throat. GASTROINTESTINAL: +Nausea, +Vomiting. No diarrhea or constipation. GENITOURINARY: No dysuria, frequency, or change in urination. CARDIOVASCULAR: +SOB. No chest pain RESPIRATORY: +Coughing. +Wheezing. No hemoptysis. MUSCULOSKELETAL: No joint or muscle swelling or pain. No neck or back pain. SKIN: No rash NEUROLOGIC: No headache, vertigo, loss of consciousness, or change in strength/ sensation. ENDOCRINE: No increased thirst. No abnormal weight change. HEMATOLOGIC/LYMPHATIC: No anemia, easy bleeding, or history of blood clots. ALLERGIC/IMMUNOLOGIC: No hives or skin allergy. All Other Systems: Reviewed and Negative <Jeremiah Guillory - Last Filed: 07/23/17 21:51> *Physical Exam - Vital Signs Last Vital Signs Temp Pulse Resp BP Pulse Ox 98.1 F 86 20 182/97 98 07/23/17 20:50 07/23/17 20:50 07/23/17 20:50 07/23/17 20:50 07/23/17 20:50 - Physical Exam Comments: 07/23/17 21:51 GENERAL: Awake, alert, and fully oriented, in no acute distress HEAD: No signs of trauma EYES: PERRLA, EOMI, sclera anicteric, conjunctiva clear ENT: +Exudates on left tonsil. Auricles normal inspection, hearing grossly normal, nares patent. Moist mucosa NECK: Normal ROM, supple, no lymphadenopathy, JVD, or masses LUNGS: +Bilateral wheezing with diminished aeration to bases. Breath sounds equal. No crackles HEART: Regular rate and rhythm, normal S1 and S2, no murmurs, rubs or gallops ABDOMEN: Soft, nontender, normoactive bowel sounds. No guarding, no rebound. No masses EXTREMITIES: Normal range of motion, no edema. No clubbing or cyanosis. No cords, erythema, or tenderness NEUROLOGICAL: Cranial nerves II through XII grossly intact. Normal speech, normal gait SKIN: Warm, Dry, normal turgor, no rashes or lesions noted. <Jeremiah Guillory - Last Filed: 07/23/17 21:51> - Vital Signs Last Vital Signs Temp Pulse Resp BP Pulse Ox 98.1 F 86 20 182/97 98 07/23/17 20:50 07/23/17 20:50 07/23/17 20:50 07/23/17 20:50 07/23/17 20:50 <Elsa Corey - Last Filed: 07/23/17 22:50> ED Treatment Course - Medications Given in the ED: ED Medications Discontinued Medications Generic Name Dose Route Start Last Admin Trade Name Freq PRN Reason Stop Dose Admin Albuterol/Ipratropium 1 amp 07/23/17 21:31 07/23/17 21:38 Duoneb - NEB 07/23/17 21:32 1 amp ONCE ONE Administration <Jeremiah Guillory - Last Filed: 07/23/17 21:51> - LABORATORY CBC & Chemistry Diagram: 07/23/17 21:30 07/23/17 21:30 <Elsa Corey - Last Filed: 07/23/17 22:50> Medical Decision Making - Medical Decision Making 07/23/17 21:32 Pt. is a 76 y/o female with PMH of HTN who presents to the ED with a complaint of sore throat, subjective fevers, nausea, vomiting, and rhinorrhea for one week. She was seen by her doctor today and feels worse than when she went to the doctor. Pt. states she has had increased difficulty swallowing food. Aspiration pneumonia vs. viral syndrome. Physical exam with exudates on tonsils and scattered wheezing b/l. Less likely strep; however, will obtain culture. Blood pressure elevated, however pt endorses taking Robitussin with her blood pressure meds. 1. CBC, CMP 2. CXR 3. Duoneb; zofran. 4. Re-evaluate 07/23/17 21:59 Pt. reports that she feels a large amount of mucous down the back of her throat and that she is having difficulty breathing. Lung sounds still with wheezing b/ l. Oxygen applied 4L O2. 07/23/17 22:46 Pt. feeling much better after O2 placement. Pt. most likely feeling short of breath d/t mucus production. CXR negative for pneumonia. Lab work is unremarkable. Slight elevation of the WBC at 11; however no shift. Pt. most likely with a URI and underlying bronchitis. Will treat with abx, inhaler, and cough syrup at this time and will d/c home. Pt. given strict return precautions and told to f/u with her PCP tomorrow <Elsa Corey - Last Filed: 07/23/17 22:50> *DC/Admit/Observation/Transfer - Attestations Scribe Attestion: 07/23/17 21:52 Documentation prepared by Jeremiah Guillory, acting as medical claims processor for Wan Alvarez MD, MD/DO. <Jeremiah Guillroy - Last Filed: 07/23/17 21:51> - Discharge Dispostion Admit: No <Elsa Corey - Last Filed: 07/23/17 22:50> Diagnosis at time of Disposition: Acute bronchitis Qualifiers: Bronchitis organism: unspecified organism Qualified Code(s): J20.9 - Acute bronchitis, unspecified - Discharge Dispostion Disposition: HOME Condition at time of disposition: Stable - Prescriptions Prescriptions: Albuterol Sulfate Inhaler - [Ventolin HFA Inhaler -] 1 - 2 inh PO Q4H #1 inhaler Azithromycin [Zithromax 250mg Tablets -] 250 mg PO UTDICT #6 tab Chlorpheniramine/Dextromethorp [Coricidin Hbp Cough & Cold Tab] 1 each PO Q6H # 20 tablet - Referrals Referrals: Sulema Montgomery MD [Primary Care Provider] - - Patient Instructions Printed Discharge Instructions: DI for Acute Bronchitis Additional Instructions: You have bronchitis. Your chest x-ray was negative for pnuemonia. Please take the Z-pack as prescribed (antibiotic). You were also prescribed an albuterol inhaler. Please use this every 4 hours to help with your breathing. Do not take the robitussin you have at home as this can raise your blood pressure. You were prescribed Cordicin HBP. Please take one pill every 6 hours as needed to help with your symptoms. Warm steamy showers can also help with decongestion. Drink plenty of fluids. Follow up with your primary care doctor tomorrow. Return to the ED if you have worsening shortness of breath, difficulty breathing , chest pain, or have any changes in your symptoms. - Post Discharge Activity
[2017-07-23] MEDS ORDERED: ONDANSETRON *ODT* 4 MG TABLET ONE (21:48)
[2017-07-23 21:57] LABS: BASOPHIL 0.8 % (0-2.0); EOSINOPHIL 1.9 % (0-4.5); MCH 27.6 pg (25.7-33.7); MCHC 32.8 g/dl (32.0-36.0); MEAN CELL VOLUME 84.2 fl (80-96); MEAN PLT VOLUME 8.1 fl (7.5-11.1); PLATELET COUNT 278 K/MM3 (134-434); RDW 14.2 % (11.6-15.6); WHITE BLOOD COUNT 11.3 K/mm3 (4.0-10.0)
[2017-07-23 22:23] LABS: ALBUMIN 3.9 g/dl (3.4-5.0); ANION GAP 5 (8-16); CALCIUM 9.4 mg/dL (8.5-10.1); CO2 30 mmol/L (21-32); CREATININE 0.7 mg/dL (0.55-1.02); GLUCOSE,RANDOM 110 mg/dL (74-106); SGOT/AST 19 U/L (15-37); SGPT/ALT 27 U/L (12-78)
[2017-07-23 22:25] LABS: ALK PHOS 116 U/L (45-117); BILIRUBIN,TOTAL 0.9 mg/dL (0.2-1.0); TOT PROT 7.8 g/dl (6.4-8.2)
== END 2017-07-23 22:44 | disposition home or self-care (01) ==
LOC: JERFT 20:46
PROC: 3E0F7GC Introduction of Other Therapeutic Substance into Respiratory Tract, Via Natural or Artificial Opening (ICD-10-PCS; principal; 2017-07-23)
DX: J20.9 Acute bronchitis, unspecified (principal); I48.91 Unspecified atrial fibrillation; Z79.01 Long term (current) use of anticoagulants; I10 Essential (primary) hypertension; E78.00 Pure hypercholesterolemia, unspecified
CPT/HCPCS: 36415; 71020-TC; 80053; 85025; 87070; 87430; 99281-25

== ENCOUNTER 2017-10-12 15:17 | Emergency (ER) | payer OTHER ==
--- NOTE | 2017-10-12 15:32 | PDOC ---
Rapid Medical Evaluation Time Seen by Provider: 10/12/17 15:27 Medical Evaluation: Allergies Allergy/AdvReac Type Severity Reaction Status Date / Time No Known Allergies Allergy Verified 07/23/17 20:50 I have performed a brief in-person evaluation of this patient. The patient presents with a chief complaint of: low back pain Pertinent physical exam findings: b/l low back pain worse on right, blood in urine I have ordered the following: UA/culture The patient will proceed to the ED for further evaluation.
[2017-10-12 15:33] VITALS: PULSE 82; BMI 23.9
[2017-10-12] MEDS ORDERED: ACETAMINOPHEN 1000 MG/100 ML VIAL (NON FORMULARY) IVPB ONE (18:56)
[2017-10-12] MEDS ORDERED: diazePAM 5 MG TABLET PO ONE (18:57)
--- NOTE | 2017-10-12 19:10 | PDOC ---
History of Present Illness - General History Source: Patient, Old Records Exam Limitations: No Limitations - History of Present Illness Initial Comments: 10/12/17 20:13 "The patient is a 77 year old female, with a significant past medical history of AFIB on Xarelto, Anxiety and GERD, who presents to the emergency department with lower back pain for 3 weeks and 1 episode of hematuria. She describes her back pain as a sharp sensation, with radiation from her lower back to her legs b /l. She notes that the pain is worsened when she lays flat and alleviated when she sits up. She reports having a trip and fall 2 weeks ago that made her pain worse She notes that the pain was there prior to the fall. She reports 1 episode of blood in her urine yesterday but clear urine since. The patient denies fevers, chest pain, shortness of breath, headache and dizziness. Denies chills, nausea, vomit, diarrhea and constipation. Denies dysuria, frequency, urgency. Allergies: None Social history: No smoking. No alcohol. No illicit drugs. Surgical history: Right Ovarian Cyst, Dental Surgery PMD: Dr. Montgomery " <Hugo Rogers - Last Filed: 10/12/17 20:13> - History of Present Illness Initial Comments: 10/12/17 20:15 Denies LE weakness/numbness, urine/stool retention or incontinence. <Clare De León - Last Filed: 10/13/17 01:23> - General Stated Complaint: FEVER, WEAKNESS Time Seen by Provider: 10/12/17 15:27 Past History <Hugo Rogers - Last Filed: 10/12/17 20:13> - Past Medical History Cardiac Disorders: Yes (AF) COPD: No HTN: Yes Hypercholesterolemia: Yes - Surgical History Abdominal Surgery: Yes (HERNIA) Orthopedic Surgery: Yes (RT FOOT) - Immunization History Immunization Up to Date: Yes - Suicide/Smoking/Psychosocial Hx Smoking History: Never smoked Have you smoked in the past 12 months: No Hx Alcohol Use: No Drug/Substance Use Hx: No Substance Use Type: None Hx Substance Use Treatment: No <Clare De León - Last Filed: 10/13/17 01:23> - Past Medical History Allergies/Adverse Reactions: Allergies Allergy/AdvReac Type Severity Reaction Status Date / Time No Known Allergies Allergy Verified 10/12/17 15:29 Home Medications: Ambulatory Orders Atorvastatin Ca [Lipitor] 20 mg PO HS #30 tablet 06/21/16 Metoprolol Succinate [Toprol XL -] 25 mg PO DAILY #30 tab.sr.24h 06/21/16 Rivaroxaban [Xarelto -] 1 tab PO HS 04/18/17 Albuterol Sulfate Inhaler - [Ventolin HFA Inhaler -] 1 - 2 inh PO Q4H #1 inhaler 07/23/17 Azithromycin [Zithromax 250mg Tablets -] 250 mg PO UTDICT #6 tab 07/23/17 Chlorpheniramine/Dextromethorp [Coricidin Hbp Cough & Cold Tab] 1 each PO Q6H # 20 tablet 07/23/17 Tramadol HCl 50 mg PO BID PRN #6 tablet MDD 2 pills 10/13/17 Review of Systems - Review of Systems Able to Perform ROS?: Yes Comments:: 10/12/17 20:13 "GENERAL/CONSTITUTIONAL: No fever. No chills. No weakness. HEAD, EYES, EARS, NOSE AND THROAT: No change in vision. No ear pain or discharge. No sore throat. GASTROINTESTINAL: No nausea, vomiting, diarrhea or constipation. GENITOURINARY: (+) Hematuria. No dysuria, frequency. CARDIOVASCULAR: No chest pain or shortness of breath. RESPIRATORY: No cough, wheezing, or hemoptysis. MUSCULOSKELETAL: (+) Back pain. No joint or muscle swelling or pain. No neck pain. SKIN: No rash NEUROLOGIC: No headache, vertigo, loss of consciousness, or change in strength/ sensation. ENDOCRINE: No increased thirst. No abnormal weight change. HEMATOLOGIC/LYMPHATIC: No anemia, easy bleeding, or history of blood clots. ALLERGIC/IMMUNOLOGIC: No hives or skin allergy." <Hugo Rogers - Last Filed: 10/12/17 20:13> *Physical Exam - Vital Signs Last Vital Signs Temp Pulse Resp BP Pulse Ox 98.5 F 82 19 155/77 100 10/12/17 15:30 10/12/17 15:30 10/12/17 15:30 10/12/17 15:30 10/12/17 15:30 - Physical Exam Comments: 10/12/17 20:13 """GENERAL: Awake, alert, and fully oriented, in no acute distress HEAD: No signs of trauma EYES: PERRLA, EOMI, sclera anicteric, conjunctiva clear ENT: Auricles normal inspection, hearing grossly normal, nares patent, oropharynx clear without exudates. Moist mucosa NECK: Normal ROM, supple, no lymphadenopathy, JVD, or masses LUNGS: Breath sounds equal, clear to auscultation bilaterally. No wheezes, and no crackles HEART: Regular rate and rhythm, normal S1 and S2, no murmurs, rubs or gallops ABDOMEN: Soft, nontender, normoactive bowel sounds. No guarding, no rebound. No masses EXTREMITIES: Normal range of motion, no edema. No clubbing or cyanosis. No cords, erythema, or tenderness BACK: No midline spinal tenderness in cervical/thoracic region. +Lumbar midline and paraspinal ttp. +straight leg test on R NEUROLOGICAL: Normal speech, cranial nerves intact, negative pronator drift, 5/ 5 strength in all 4 extremities, normal sensation to light touch in all 4 extremities, normal cerebellar exam, antalgic but steady gait, normal reflexes and tone SKIN: Warm, Dry, normal turgor, no rashes or lesions noted. """ <Hugo Rogers - Last Filed: 10/12/17 20:13> - Vital Signs Last Vital Signs Temp Pulse Resp BP Pulse Ox 98.5 F 82 19 155/77 100 10/12/17 15:30 10/12/17 15:30 10/12/17 15:30 10/12/17 15:30 10/12/17 15:30 <Clare De León - Last Filed: 10/13/17 01:23> ED Treatment Course - LABORATORY CBC & Chemistry Diagram: 10/12/17 19:43 10/12/17 19:43 - ADDITIONAL ORDERS Additional order review: 10/12/17 19:43 RBC 4.23 MCV 83.7 MCHC 32.1 RDW 15.4 MPV 8.1 Neutrophils % 79.1 Lymphocytes % 10.6 D Monocytes % 10.0 Eosinophils % 0.1 D Basophils % 0.2 - Medications Given in the ED: ED Medications Discontinued Medications Generic Name Dose Route Start Last Admin Trade Name Freq PRN Reason Stop Dose Admin Acetaminophen 1,000 mg 10/12/17 18:56 10/12/17 19:53 Ofirmev Injection - IVPB 10/12/17 18:57 1,000 mg ONCE ONE Administration Diazepam 5 mg 10/12/17 18:57 10/12/17 19:53 Valium - PO 10/12/17 18:58 5 mg ONCE ONE Administration <KenHugogino Goode - Last Filed: 10/12/17 20:13> - LABORATORY CBC & Chemistry Diagram: 10/12/17 19:43 10/12/17 19:43 - RADIOLOGY Radiology Studies Ordered: Category Date Time Status LUMBAR SPINE CT W/O CONTRAST [CT] Stat CT Scan 10/12/17 18:55 Ordered <DanielaWiley sandovalnatasha - Last Filed: 10/13/17 01:23> Medical Decision Making - Medical Decision Making 10/12/17 19:05 77-year-old female multiple medical problems presents to emergency department with progressive lower back pain for weeks. She reports the pain was worse today which prompted her to come into the emergency department. Vitals are unremarkable. Exam with midline lumbar and paraspinal lumbar tenderness to palpation. Pt with no weakness, sensory deficits in LE. REflexes wnl. Patient able to ambulate with an antalgic but steady gait assisted by a cane. Will obtain a CT of the lumbar spine to evaluate for any fractures and obtain labs and a urinalysis given one episode of blood in urine. We'll also give pain medication and reassess. 10/13/17 00:00 Pain improved s/p tylenol, tramadol ordered. Labs with leukocytosis to 15.6, UA neg for infection. Pt with no infectious sxs and thus leukocytosis possibly stress response due to pain. CT lumbar spine read by [facility] with degenerative disc disease with no fractures. CT also shows loop shaped density in pelvis, possibly in vasculature. 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 Upon discussion with the patient, she states she had tubal ligation reversal 40+ years ago and at the time, wiring was placed to assist with the reversal. She is aware that the wiring is still present in her pelvis. I have referred her to [facility] for f/u and evaluation to see if wiring needs removal, although per the patients history, the wiring has been present for >40yrs. 10/13/17 01:11 Pt feels better, requests DC home. Daughter will drive her home. I discussed the physical exam findings, ancillary test results and final diagnoses with the patient. I answered all of the patient's questions. The patient was satisfied with the care received and felt comfortable with the discharge plan and treatment plan. The patient will call their primary care physician within 24 hours to arrange follow-up and will return to the Emergency Department with any new, persistent or worsening symptoms. <Clare De León - Last Filed: 10/13/17 01:23> *DC/Admit/Observation/Transfer - Attestations Scribe Attestion: 10/12/17 20:14 Documentation prepared by Hugo Rogers, acting as medical equipment sales for Clare De León MD <Hugo Rogers - Last Filed: 10/12/17 20:13> - Discharge Dispostion Admit: No - Attestations Physician Attestion: 10/13/17 01:17 I, Dr. Clare De León MD, attest that this document has been prepared under my direction and personally reviewed by me in its entirety. I further attest, that it accurately reflects all work, treatment, procedures and medical decision -making performed by me. <Clare De León - Last Filed: 10/13/17 01:23> Diagnosis at time of Disposition: Back pain - Discharge Dispostion Disposition: HOME Condition at time of disposition: Stable - Referrals Referrals: Rosalba Sands MD [Staff Physician] - - Patient Instructions Additional Instructions: Take 2 tylenol 500mg tablets every 6 hours as needed for pain. If tylenol does not control your pain, you may take a tramadol pill. Tramadol can make you dizzy and drowsy so do not drive if you are using this medication. Follow up with your primary doctor within 1 week for your back pain and for a repeat urine test to check for bleeding. As we discussed, your CT scan showed a wire in your pelvis that is likely left from the surgery to reverse your tubal ligation. We are referring you to the [facility] doctor for follow up on this issue as this wire may need to be removed. Please call to make an appointment within 1-2 weeks. Return to the emergency department if you have any new, worsening, or concerning symptoms.
[2017-10-12] MEDS ORDERED: diazePAM 5 MG TABLET ONE (19:32)
[2017-10-12] MEDS ORDERED: ACETAMINOPHEN INJECTION 100 ML IVPB ONE (19:33)
[2017-10-12 20:06] LABS: BASO % 0.2 % (0-2.0); EOS % 0.1 % (0-4.5); HEMATOCRIT 35.4 % (32.4-45.2); HEMOGLOBIN 11.4 GM/dL (10.7-15.3); LYMPH % 10.6 % (8-40); MCH 26.8 pg (25.7-33.7); MCHC 32.1 g/dl (32.0-36.0); MEAN CELL VOLUME 83.7 fl (80-96); MEAN PLT VOLUME 8.1 fl (7.5-11.1); NEUT % 79.1 % (42.8-82.8); PLATELET COUNT 300 K/MM3 (134-434); RBC 4.23 M/mm3 (3.60-5.2); RDW 15.4 % (11.6-15.6); WHITE BLOOD COUNT 15.7 K/mm3 (4.0-10.0)
[2017-10-12 20:44] LABS: ALBUMIN 3.5 g/dl (3.4-5.0); ANION GAP 9 (8-16); BILIRUBIN,TOTAL 0.9 mg/dL (0.2-1.0); BLOOD UREA NITROGEN 11 mg/dL (7-18); CALCIUM 8.8 mg/dL (8.5-10.1); CHLORIDE 102 mmol/L (98-107); CO2 27 mmol/L (21-32); CREATININE 0.6 mg/dL (0.55-1.02); GLUCOSE,RANDOM 112 mg/dL (74-106); POTASSIUM 4.3 mmol/L (3.5-5.1); SGOT/AST 24 U/L (15-37); SGPT/ALT 22 U/L (12-78); SODIUM 138 mmol/L (136-145); TOT PROT 7.8 g/dl (6.4-8.2)
[2017-10-12 20:45] LABS: ALK PHOS 96 U/L (45-117); INR 1.27 (0.82-1.09); PROTHROMBIN TIME (PATIENT) 14.3 SEC (9.98-11.88)
[2017-10-12 20:48] LABS: ACTIVATED PTT 35.5 SECONDS (26.9-34.4)
[2017-10-12 22:45] LABS: URINE APPEARANCE CLEAR; URINE BILIRUBIN NEGATIVE (NEGATIVE); URINE BLOOD 2+ (NEGATIVE); URINE COLOR LTYELLOW; URINE GLUCOSE (UA) NEGATIVE (NEGATIVE); URINE KETONE TRACE (NEGATIVE); URINE LEUK ESTERASE NEGATIVE (NEGATIVE); URINE NITRITE NEGATIVE (NEGATIVE); URINE UROBILINOGEN NEGATIVE mg/dL (0.2-1.0)
[2017-10-12 22:46] LABS: URINE PROTEIN 1+ (NEGATIVE)
[2017-10-12 22:47] LABS: CALCIUM OXALATE CRYSTALS RARE /hpf (NONE SEEN); URINE BACTERIA RARE /hpf (NONE SEEN)
[2017-10-13] MEDS ORDERED: traMADol HCL 50 MG TABLET PO ONE (00:26)
[2017-10-13] MEDS ORDERED: traMADol HCL 50 MG TABLET ONE (00:46)
[2017-10-13 01:42] VITALS: BP 155/76; TEMP 98.4
== END 2017-10-13 01:42 | disposition home or self-care (01) ==
LOC: JER 15:17
PROC: 3E033NZ Introduction of Analgesics, Hypnotics, Sedatives into Peripheral Vein, Percutaneous Approach (ICD-10-PCS; principal; 2017-10-12)
DX: M54.5 Low back pain (principal); I48.91 Unspecified atrial fibrillation; Z79.01 Long term (current) use of anticoagulants; I10 Essential (primary) hypertension; E78.5 Hyperlipidemia, unspecified; F41.9 Anxiety disorder, unspecified; K21.9 Gastro-esophageal reflux disease without esophagitis
CPT/HCPCS: 36415; 72131-TC; 80053; 81003; 81015; 85025; 85610; 85730; 87086; 96374; 99284-25

== ENCOUNTER 2017-12-21 10:35 | Observation (INO) | payer OTHER ==
--- NOTE | 2017-12-21 11:29 | PDOC ---
History of Present Illness - General Chief Complaint: Headache Stated Complaint: LOW BACK PAIN Time Seen by Provider: 12/21/17 10:50 History Source: Patient, Family - History of Present Illness Initial Comments: 12/21/17 11:32 Patient is a 77 year old female with a PMH of Atrial Fibrillation (on Xarelto), GERD, HTN who presents to our ED today c/o acute onset of headache as well as neck and back pain. Patient states the headache is diffuse, 10/10, and worsens with movement. Endorses some blurry vision which has been occurring for 2-3 months as well as neck pain which is B/L. Denies any fevers, vomiting, AMS. Denies any previous h/o similar headache. Back pain started 2 months previous and has progressed up her spine to her neck and patient often notes she uses a neck pillow to alleviate the pain with some relief. The patient denies fevers, chest pain, shortness of breath. Denies chills, nausea, vomit, diarrhea and constipation. Denies dysuria, frequency, urgency. As per EMR patient was evaluated in our ED in 09/[address] showed degenerative disc disease but no acute fracture/pathology. Allergies: None Social history: No smoking. No alcohol. No illicit drugs. Surgical history: Right Ovarian Cyst, Dental Surgery PMD: Dr. Montgomery Past History - Past Medical History Allergies/Adverse Reactions: Allergies Allergy/AdvReac Type Severity Reaction Status Date / Time No Known Allergies Allergy Verified 12/21/17 10:39 Home Medications: Ambulatory Orders Atorvastatin Ca [Lipitor] 20 mg PO HS #30 tablet 06/21/16 Metoprolol Succinate [Toprol XL -] 25 mg PO DAILY #30 tab.sr.24h 06/21/16 Rivaroxaban [Xarelto -] 1 tab PO HS 04/18/17 Albuterol Sulfate Inhaler - [Ventolin HFA Inhaler -] 1 - 2 inh PO Q4H #1 inhaler 07/23/17 Chlorpheniramine/Dextromethorp [Coricidin Hbp Cough & Cold Tab] 1 each PO Q6H # 20 tablet 07/23/17 Acetaminophen [Tylenol .Regular Strength -] 650 mg PO Q4H PRN tablet 12/22/17 Amitriptyline HCl [Elavil -] 10 mg PO HS #30 tablet 12/22/17 Baclofen [Lioresal -] 5 mg PO BID #20 tablet 12/22/17 Diphenhydramine HCl [Benadryl Capsule -] 25 mg PO HS capsule 12/22/17 Cardiac Disorders: Yes (AF) COPD: No HTN: Yes Hypercholesterolemia: Yes Other medical history: BACK PAIN - Surgical History Abdominal Surgery: Yes (ABD SX) Orthopedic Surgery: Yes (RT FOOT) - Immunization History Immunization Up to Date: Yes - Suicide/Smoking/Psychosocial Hx Smoking History: Never smoked Have you smoked in the past 12 months: No Information on smoking cessation initiated: No Hx Alcohol Use: No Drug/Substance Use Hx: No Substance Use Type: None Hx Substance Use Treatment: No Review of Systems - Review of Systems Constitutional: No: Chills, Fever HEENTM: No: Recent change in vision Respiratory: No: Shortness of Breath Cardiac (ROS): Yes: Symptoms Reported. No: Chest Pain, Lightheadedness, Palpitations, Syncope ABD/GI: No: Constipated, Diarrhea, Nausea, Vomiting : No: Burning, Dysuria *Physical Exam - Vital Signs Last Vital Signs Temp Pulse Resp BP Pulse Ox 98.1 F 82 18 146/77 100 12/21/17 10:41 12/21/17 10:41 12/21/17 10:41 12/21/17 10:41 12/21/17 10:41 - Physical Exam General Appearance: Yes: Nourished, Thin HEENT: positive: EOMI, SHERICE, Hearing Grossly Normal. negative: Pharyngeal Erythema, Tonsillar Exudate, Tonsillar Erythema Neck: positive: Trachea midline, Supple Respiratory/Chest: positive: Lungs Clear Cardiovascular: positive: S1, S2. negative: Edema, JVD Vascular Pulses: Dorsalis-Pedis (R): 2+, Doralis-Pedis (L): 2+ Gastrointestinal/Abdominal: positive: Normal Bowel Sounds, Soft Musculoskeletal: negative: CVA Tenderness (R), CVA Tenderness (L) Extremity: positive: Normal Capillary Refill, Normal Inspection Integumentary: positive: Normal Color, Dry, Warm ED Treatment Course - LABORATORY CBC & Chemistry Diagram: 12/22/17 07:27 12/22/17 07:27 Medical Decision Making - Medical Decision Making 12/21/17 15:26 77 year old female presents with acute onset of headache and 2 month h/o progressively worsening neck pain. No focal neurologic deficits on PE. Will obtain CT head to r/o SAH as well as C-spine to r/o fracture/herniation. Reassess. CT Head negative for acute bleed. C-spine shows no acute fracture, degenerative disease. Leukocytosis 15. Suspected source likely urine. Will admit to inpatient medicine service for further evaluation. *DC/Admit/Observation/Transfer Diagnosis at time of Disposition: Neck pain - Discharge Dispostion Disposition: VNS/HOME HEALTH CARE Condition at time of disposition: Improved - Prescriptions - Referrals - Patient Instructions - Post Discharge Activity
--- NOTE | 2017-12-21 11:32 | PDOC ---
Attending Attestation - HPI HPI: 12/21/17 12:05 The patient is a 77 year old female with history of hypertension, GERD, atrial fibrillation on Xarelto, who presents to the ED complaining of headache with back pain and neck pain for some time, significantly worse upon waking up today. The patient states her pain is worse with movement and improved with rest. She also reports recently decreased appetite and 10 lb weight loss, she is unable to describe how long this has been going on. She also reports recent subjective fever and chills. No nausea, vomiting, or diaphoresis. No blurred vision or paresthesias. No chest pain or shortness of breath. - Physicial Exam PE: 12/21/17 12:15 Vitals: Triage vital signs reviewed General Appearance: No acute distress,thin body habitus, well developed Head: Atraumatic Eyes: Pupils equal reactive round, extraocular movement intact Neck: +b/l paraspinal neck tenderness to palpation, r>l; supple; No nuchal rigidity Chest Wall: Nontender Cardiac: Regular rate and rhythm, no murmurs, no rubs, no gallops Lungs: Clear to auscultation bilateral, good air movement bilaterally Abdomen: Soft, nondistended, normal bowel sounds, nontender to palpation Extremities: Full range of motion to all extremities, no cyanosis, clubbing, or edema Skin: Warm and dry, no rashes or lesions, no rash, no petechiae Psych: Normal mood, normal affect Documentation prepared by Alexandra Churchill, acting as medical staff services coordinator for Glenn Trivedi MD. <Alexandra Churchill - Last Filed: 12/21/17 12:39> - Resident Resident Name: Antonina Rivas - ED Attending Attestation I have performed the following: I have examined & evaluated the patient, The case was reviewed & discussed with the resident, I agree w/resident's findings & plan, Exceptions are as noted - Medical Decision Making 12/21/17 19:52 77 years old past medical history significant for hypertension and GERD Sonal Khan also presents to the ED with progressively worsening Actiq and neck pain. Patient has been using a soft collar to avoid movements to her neck with worsening muscular neck and head pain. Denies headache. Patient also endorses recent weight loss greater than 10 pounds, and multiple falls. Has non focal neuro exam. Imaging notable for multilevel degenerative disease Head CT negative for acute pathology Laboratory analysis not a lot notable for leukocytosis Given weight-loss progressively worsening symptoms multiple falls will admit to medicine for further evaluation of leukocytosis back discomfort and falls <Glenn Trivedi - Last Filed: 12/21/17 19:52> Heart Score/ECG Review #1 12/21/17 12:39 EKG performed at 1227 demonstrates rate of 77 bpm, rhythm of normal sinus rhythm , axis equal to normal. No T wave inversions, no ST elevations. <Alexandra Churchill - Last Filed: 12/21/17 12:39>
[2017-12-21] MEDS ORDERED: ACETAMINOPHEN 1000 MG/100 ML VIAL (NON FORMULARY) IVPB ONE (11:51)
[2017-12-21] MEDS ORDERED: METOCLOPRAMIDE HCL INJECTION 10 MG/2 ML VIAL IVPUSH ONE (11:51)
[2017-12-21] MEDS ORDERED: METOCLOPRAMIDE HCL INJECTION 10 MG/2 ML VIAL ONE (12:33)
[2017-12-21 13:04] LABS: BASO % 0.3 % (0-2.0); HEMATOCRIT 35.2 % (32.4-45.2); HEMOGLOBIN 11.5 GM/dL (10.7-15.3); LYMPH % 8.3 % (8-40); MCHC 32.5 g/dl (32.0-36.0); MEAN CELL VOLUME 83.1 fl (80-96); MEAN PLT VOLUME 7.9 fl (7.5-11.1); MONO % 9.9 % (3.8-10.2); NEUT % 81.5 % (42.8-82.8); PLATELET COUNT 375 K/MM3 (134-434); RBC 4.24 M/mm3 (3.60-5.2); RDW 15.1 % (11.6-15.6); WHITE BLOOD COUNT 15.2 K/mm3 (4.0-10.0)
[2017-12-21 13:27] LABS: INR 1.19 (0.82-1.09); PROTHROMBIN TIME (PATIENT) 13.5 SEC (9.7-13.0)
[2017-12-21 13:29] LABS: ACTIVATED PTT 38.7 SECONDS (26.9-34.4)
[2017-12-21 13:40] LABS: ALBUMIN 3.6 g/dl (3.4-5.0); ALK PHOS 83 U/L (45-117); ANION GAP 7 (8-16); BILIRUBIN,TOTAL 0.7 mg/dL (0.2-1.0); BLOOD UREA NITROGEN 9 mg/dL (7-18); CALCIUM 9.4 mg/dL (8.5-10.1); CHLORIDE 104 mmol/L (98-107); CO2 29 mmol/L (21-32); CREATININE 0.6 mg/dL (0.55-1.02); GLUCOSE,RANDOM 127 mg/dL (74-106); MAGNESIUM 2.2 mg/dL (1.8-2.4); POTASSIUM 4.1 mmol/L (3.5-5.1); SGOT/AST 15 U/L (15-37); SGPT/ALT 17 U/L (12-78); SODIUM 140 mmol/L (136-145); TOT PROT 7.7 g/dl (6.4-8.2)
[2017-12-21] MEDS ORDERED: ACETAMINOPHEN 325 MG TABLET (FP) PO PRN (15:43)
--- NOTE | 2017-12-21 16:22 | HP ---
Admitting History and Physical - Admission Chief Complaint: back and neck pain History of Present Illness: This is a 77 year old female with pmhx of P afib (xarelto), HTN, HLD, GERD, RA presented to the ED with worsening back and b/l neck pain with associated [place]. The patient has been having back pain for 2 weeks, denies trauma, although hx of falls. Today she awoke and the pain was referring to her bi lateral neck and R shoulder. She is unable to extend her neck, has increased pain when she looks right and has limited range of motion with the left side. Her son says when she wakes up in the morning her neck is fully flexed to her chest and she has to raise it up with her hands. PT states she had a fever 2 days ago. Denies cp, sob , abd pain, n/v. Her son said she hasn't been eating well following a surgery where her top row of teeth were removed and shes subsequently been having issues with proper denture fitting. History Source: Patient, Family Member Limitations to Obtaining History: No Limitations - Past Medical History Cardiovascular: Yes: AFIB Pulmonary: Yes: Bronchitis Gastrointestinal: Yes: GERD Rheumatology: Yes: Rheumatoid Arthritis - Past Surgical History Past Surgical History: Yes: Hernia Repair - Smoking History Smoking history: Never smoked Have you smoked in the past 12 months: No - Alcohol/Substance Use Hx Alcohol Use: No History of Substance Use: reports: None - Social History ADL: Independent History of Recent Travel: No Home Medications - Allergies Allergies/Adverse Reactions: Allergies Allergy/AdvReac Type Severity Reaction Status Date / Time No Known Allergies Allergy Verified 12/21/17 10:39 - Home Medications Home Medications: Ambulatory Orders Atorvastatin Ca [Lipitor] 20 mg PO HS #30 tablet 06/21/16 Metoprolol Succinate [Toprol XL -] 25 mg PO DAILY #30 tab.sr.24h 06/21/16 Rivaroxaban [Xarelto -] 1 tab PO HS 04/18/17 Albuterol Sulfate Inhaler - [Ventolin HFA Inhaler -] 1 - 2 inh PO Q4H #1 inhaler 07/23/17 Chlorpheniramine/Dextromethorp [Coricidin Hbp Cough & Cold Tab] 1 each PO Q6H # 20 tablet 07/23/17 Tramadol HCl 50 mg PO BID PRN #6 tablet MDD 2 pills 10/13/17 Review of Systems - Review of Systems Constitutional: reports: No Symptoms Eyes: reports: No Symptoms HENT: reports: No Symptoms Neck: reports: Pain on Movement, Stiffness Cardiovascular: reports: No Symptoms Respiratory: reports: No Symptoms Gastrointestinal: reports: No Symptoms Genitourinary: reports: No Symptoms Musculoskeletal: reports: Back Pain Integumentary: reports: No Symptoms Neurological: reports: Headache Endocrine: reports: No Symptoms Hematology/Lymphatic: reports: No Symptoms Psychiatric: reports: No Symptoms Physical Examination Vital Signs: Vital Signs Temperature 98.1 F 12/21/17 10:41 Pulse Rate 82 12/21/17 10:41 Respiratory Rate 18 12/21/17 10:41 Blood Pressure 146/77 12/21/17 10:41 O2 Sat by Pulse Oximetry (%) 100 12/21/17 10:41 Constitutional: Yes: No Distress Eyes: Yes: Conjunctiva Clear HENT: Yes: WNL Neck: Yes: Tenderness (pain R>L, limited rom 30 degrees) Cardiovascular: Yes: Regular Rate and Rhythm, S1, S2 Respiratory: Yes: Regular, CTA Bilaterally Gastrointestinal: Yes: Normal Bowel Sounds, Soft Renal/: Yes: WNL Musculoskeletal: Yes: Back Pain Extremities: Yes: WNL Edema: No Neurological: Yes: Alert, Oriented Psychiatric: Yes: Alert, Oriented Labs: CBC, BMP 12/21/17 12:28 12/21/17 12:28 Imaging - Results Cat Scan: Report Reviewed Problem List - Problems (1) Back pain Code(s): M54.9 - DORSALGIA, UNSPECIFIED (2) GERD (gastroesophageal reflux disease) Code(s): K21.9 - GASTRO-ESOPHAGEAL REFLUX DISEASE WITHOUT ESOPHAGITIS Qualifiers: Esophagitis presence: without esophagitis Qualified Code(s): K21.9 - Gastro -esophageal reflux disease without esophagitis (3) HLD (hyperlipidemia) Code(s): E78.5 - HYPERLIPIDEMIA, UNSPECIFIED (4) HTN (hypertension) Code(s): I10 - ESSENTIAL (PRIMARY) HYPERTENSION (5) Paroxysmal atrial fibrillation Code(s): I48.0 - PAROXYSMAL ATRIAL FIBRILLATION (6) Rheumatoid arthritis Code(s): M06.9 - RHEUMATOID ARTHRITIS, UNSPECIFIED Qualifiers: Rheumatoid arthritis location: shoulder Rheumatoid factor presence: unspecified presence Laterality: left Qualified Code(s): M06.9 - Rheumatoid arthritis, unspecified Assessment/Plan Assessment: 77 year old female admitted with worsening neck and back pain Plan: 1. Neck and back pain - CT scan noted, degenerative changes - Consider MRI cervical neck - Trial valium and ibuprofen x1 - R.o UTI - Neuro consulted 2. P afib - Metoprolol 25mg daily - Xarelto 3. HTN - BB 4. RA 5. DVT - On xarelto Visit type - Emergency Visit Emergency Visit: Yes Care time: The patient presented to the Emergency Department on the above date and was hospitalized for further evaluation of their emergent condition. - New Patient This patient is new to me today: Yes Date on this admission: 12/21/17 - Critical Care Critical Care patient: No Hospitalist Screening - Colonoscopy Questionnaire Colonoscopy Questionnaire: Colonoscopy Questionnaire - Patient: 50 - 75 years old and never had a screening colonoscopy: Unknown History of colon or rectal polyps, or CA: Unknown History of IBD, Crohn's disease or UC: Unknown History of abdominal radiation therapy as a child: Unknown - Relative: 1 with colon or rectal CA, or polyps at age 60 or younger: Unknown Colon or rectal CA diagnosed at age 45 or younger: Unknown Multiple relatives with colon or rectal CA: Unknown - Outcome: Screening Result: Negative Screen
[2017-12-21] MEDS ORDERED: IBUPROFEN 600 MG TABLET (FP) PO ONE (16:42)
[2017-12-21] MEDS ORDERED: diazePAM 2 MG TABLET PO ONE ×2 (17:00→20:45)
[2017-12-21] MEDS ORDERED: diphenhydrAMINE HCL 25 MG CAPSULE (FP) PO ONE ×2 (18:18→22:00)
[2017-12-21] MEDS ORDERED: BACLOFEN 10 MG TABLET (FP) PO PRN (18:18)
--- NOTE | 2017-12-21 18:29 | CON.NEURO ---
Consult - Past Medical History Cardio/Vascular: Yes: AFIB Pulmonary: Yes: Bronchitis Gastrointestinal: Yes: GERD Rheumatology: Yes: Rheumatoid Arthritis - Past Surgical History Past Surgical History: Yes: Hernia Repair - Alcohol/Substance Use Hx Alcohol Use: No History of Substance Use: reports: None - Smoking History Smoking history: Never smoked Have you smoked in the past 12 months: No - Social History ADL: Independent History of Recent Travel: No Home Medications - Allergies Allergies/Adverse Reactions: Allergies Allergy/AdvReac Type Severity Reaction Status Date / Time No Known Allergies Allergy Verified 12/21/17 10:39 - Home Medications Home Medications: Ambulatory Orders Atorvastatin Ca [Lipitor] 20 mg PO HS #30 tablet 06/21/16 Metoprolol Succinate [Toprol XL -] 25 mg PO DAILY #30 tab.sr.24h 06/21/16 Rivaroxaban [Xarelto -] 1 tab PO HS 04/18/17 Albuterol Sulfate Inhaler - [Ventolin HFA Inhaler -] 1 - 2 inh PO Q4H #1 inhaler 07/23/17 Chlorpheniramine/Dextromethorp [Coricidin Hbp Cough & Cold Tab] 1 each PO Q6H # 20 tablet 07/23/17 Tramadol HCl 50 mg PO BID PRN #6 tablet MDD 2 pills 10/13/17 Physical Exam-Neuro Vital Signs: Vital Signs Temperature 98.1 F 12/21/17 10:41 Pulse Rate 82 12/21/17 10:41 Respiratory Rate 18 12/21/17 10:41 Blood Pressure 146/77 12/21/17 10:41 O2 Sat by Pulse Oximetry (%) 99 12/21/17 12:00 Labs: CBC, BMP 12/21/17 12:28 12/21/17 12:28 INR, PTT INR 1.19 (0.82-1.09) H 12/21/17 12:28 Assessment/Plan cc Neck pain and difficulty moving her neck HPI 77 year old female history of atrial fibrillation on xarelto, htn, gerd, rheumatoid arthritis, gerd. Patient has severe neck pain and pain shooting to her head adn in shoulder area. She denies any pain shooting to arms. She also states that pain shoots from her lower back to neck. She is able to walk. She denies any incontinence, trauma, or fever. She had ct head and c spine . C spine ct head showed djd. She denies any weakness or sensory loss. PMH as above. SH,ROS,FH reviewed in chart NKDA Home Medications Atorvastatin Ca [Lipitor] 20 mg PO HS #30 tablet 06/21/16 Metoprolol Succinate [Toprol XL -] 25 mg PO DAILY #30 tab.sr.24h 06/21/16 Rivaroxaban [Xarelto -] 1 tab PO HS 04/18/17 Albuterol Sulfate Inhaler - [Ventolin HFA Inhaler -] 1 - 2 inh PO Q4H #1 inhaler 07/23/17 Chlorpheniramine/Dextromethorp [Coricidin Hbp Cough & Cold Tab] 1 each PO Q6H # 20 tablet 07/23/17 Tramadol HCl 50 mg PO BID PRN #6 tablet MDD 2 pills 10/13/17 Neurological Examination Alert , oriented x 3, follow command Cn eomi,pupils reactive, no face asymmetry motor 5/5 all extremity sensation is noraml there is grade 3 reflex in lower extremity and grade 2 in upper extremity no spasticity , she is able to walk ct head and ct c spine reviewed Assessment-Flexion neck deformity could be due to Rheumatoid arthritis / Osteoarthritis and dystonia ( no recent medication exposure) Plan- Advice to give one dose of benadryl 25 mg iv once - start elavil 10 mg qhs - baclofen 5 mg po bid prn - mri of c spine, as there is slight hyper reflexia in lower etremity. Mri can also be done outpatient, as I do not see any urgency to do during this admission , as there is no weakness or sensory level - She would need PT, if muscle relaxant and PT not effect, she may benefit from Botox treatment -A non urgent Lumbar mri can also be done outpatient. - I gave her office no, she can follow up with me outpatient - please feel free to call me, Neurologist aviation electrical technician would be cover me over the weekend Thanking you so much Romulo Wood MD
[2017-12-21 18:35] VITALS: BMI 23.6
[2017-12-21] MEDS ORDERED: FLU VACCINE QUAD 60 MCG/0.5 ML (MDV 17-18) IM ONE (19:00)
[2017-12-21] MEDS ORDERED: AMITRIPTYLINE HCL 10 MG TABLET (FP) PO SCH (22:00)
[2017-12-21] MEDS ORDERED: ATORVASTATIN CA 20 MG TABLET (FP) PO SCH (22:00)
[2017-12-21] MEDS ORDERED: RIVAROXABAN 15 MG TABLET PO SCH (22:00)
[2017-12-21] MEDS ORDERED: diphenhydrAMINE HCL 25 MG CAPSULE (FP) PO SCH (22:00)
[2017-12-22 07:55] LABS: BASO % 0.4 % (0-2.0); EOS % 1.1 % (0-4.5); HEMATOCRIT 35.9 % (32.4-45.2); LYMPH % 12.6 % (8-40); MCH 27.6 pg (25.7-33.7); MCHC 33.4 g/dl (32.0-36.0); MEAN CELL VOLUME 82.6 fl (80-96); MEAN PLT VOLUME 7.9 fl (7.5-11.1); MONO % 10.8 % (3.8-10.2); NEUT % 75.1 % (42.8-82.8); PLATELET COUNT 394 K/MM3 (134-434); RBC 4.35 M/mm3 (3.60-5.2); RDW 15.2 % (11.6-15.6); WHITE BLOOD COUNT 10.7 K/mm3 (4.0-10.0)
[2017-12-22 08:54] LABS: ALBUMIN 3.2 g/dl (3.4-5.0); ALK PHOS 81 U/L (45-117); ANION GAP 3 (8-16); BILIRUBIN,TOTAL 0.8 mg/dL (0.2-1.0); BLOOD UREA NITROGEN 13 mg/dL (7-18); CALCIUM 8.6 mg/dL (8.5-10.1); CHLORIDE 107 mmol/L (98-107); CO2 30 mmol/L (21-32); CREATININE 0.6 mg/dL (0.55-1.02); GLUCOSE,RANDOM 78 mg/dL (74-106); MAGNESIUM 2.1 mg/dL (1.8-2.4); PHOSPHOROUS 2.8 mg/dL (2.5-4.9); POTASSIUM 4.4 mmol/L (3.5-5.1); SGOT/AST 13 U/L (15-37); SGPT/ALT 16 U/L (12-78); SODIUM 140 mmol/L (136-145); TOT PROT 7.3 g/dl (6.4-8.2)
[2017-12-22 09:51] VITALS: BP 131/80; PULSE 95; TEMP 98.3
--- NOTE | 2017-12-22 09:52 | DS ---
Physical Examination Vital Signs: Vital Signs Temperature 98.3 F 12/22/17 09:50 Pulse Rate 95 H 12/22/17 09:50 Respiratory Rate 18 12/22/17 09:50 Blood Pressure 131/80 12/22/17 09:50 O2 Sat by Pulse Oximetry (%) 98 12/21/17 21:00 Labs: CBC, BMP 12/22/17 07:27 12/22/17 07:27 Discharge Summary Reason For Visit: LEUKOCYTOSIS Hospital Course: Patient reports feeling better, wants to go home. Denies any urinary symptoms. WBC trended down Condition: Improved - Instructions Diet, Activity, Other Instructions: Please return to the ED with new, persistent, or worsening symptoms. Please follow-up with providers as indicated. Referrals: Romulo Wood MD [Staff Physician] - (Please follow-up with Dr. Wood on to schedule an oupatient MRI of your cervical spine and your lumbar spine. Continue taking Elavil 10mg at night and Baclofen 5mg twice a day as needed for neck pain/spasm.) Sulema Montgomery MD [Primary Care Provider] - (Please follow-up with your primary care provider within 3-5 days. ) Disposition: VNS/HOME HEALTH CARE - Home Medications Comprehensive Discharge Medication List: Ambulatory Orders Atorvastatin Ca [Lipitor] 20 mg PO HS #30 tablet 06/21/16 Metoprolol Succinate [Toprol XL -] 25 mg PO DAILY #30 tab.sr.24h 06/21/16 Rivaroxaban [Xarelto -] 1 tab PO HS 04/18/17 Albuterol Sulfate Inhaler - [Ventolin HFA Inhaler -] 1 - 2 inh PO Q4H #1 inhaler 07/23/17 Chlorpheniramine/Dextromethorp [Coricidin Hbp Cough & Cold Tab] 1 each PO Q6H # 20 tablet 07/23/17 Acetaminophen [Tylenol .Regular Strength -] 650 mg PO Q4H PRN tablet 12/22/17 Amitriptyline HCl [Elavil -] 10 mg PO HS #30 tablet 12/22/17 Baclofen [Lioresal -] 5 mg PO BID #20 tablet 12/22/17 Diphenhydramine HCl [Benadryl Capsule -] 25 mg PO HS capsule 12/22/17
[2017-12-22] MEDS ORDERED: metoPROLOL SUCCINATE 25 MG TAB.SR.24H (FP) PO SCH (10:00)
--- NOTE | 2017-12-22 11:33 | EKG ---
Test Reason : Blood Pressure : / mmHG Vent. Rate : 077 BPM Atrial Rate : 077 BPM P-R Int : 142 ms QRS Dur : 088 ms QT Int : 384 ms P-R-T Axes : 050 020 038 degrees QTc Int : 434 ms NORMAL SINUS RHYTHM NORMAL ECG WHEN COMPARED WITH ECG OF 04-NOV-2016 00:24, NO SIGNIFICANT CHANGE WAS FOUND Confirmed by LARS STUART MD ([id number]) on 12/22/2017 11:32:43 AM Referred By: Confirmed By:LARS STUART MD
== END 2017-12-22 11:32 | disposition home health service (06) ==
LOC: JER 10:35 → JERBED 15:42 → J4W 17:35
PROVIDERS: ADMIT Emergency Medicine; ATTEND Registered Nurse
PROC: 3E033GC Introduction of Other Therapeutic Substance into Peripheral Vein, Percutaneous Approach (ICD-10-PCS; principal; 2017-12-21)
DX: D72.829 Elevated white blood cell count, unspecified (principal); M54.9 Dorsalgia, unspecified; I48.0 Paroxysmal atrial fibrillation; I10 Essential (primary) hypertension; E78.5 Hyperlipidemia, unspecified; K21.9 Gastro-esophageal reflux disease without esophagitis; M06.9 Rheumatoid arthritis, unspecified; Z79.01 Long term (current) use of anticoagulants
CPT/HCPCS: 36415; 70450-TC; 71045-TC-FY; 72125-TC; 80053; 83735; 84100; 85025; 85610; 85730; 87040; 93005; 93010; 96374; 96375; 99285-25; G0378; J0131; J0475

== ENCOUNTER 2017-12-29 16:04 | Emergency (ER) | payer OTHER ==
[2017-12-29 16:15] VITALS: BP 147/96; PULSE 78; TEMP 98.3; BMI 23.6
--- NOTE | 2017-12-29 16:38 | PDOC ---
History of Present Illness - General Chief Complaint: Redness To Affected Area Stated Complaint: INFECTION Time Seen by Provider: 12/29/17 16:28 History Source: Patient Exam Limitations: No Limitations - History of Present Illness Initial Comments: CHIEF COMPLAINT: 77 y/o afebrile female with PMH a-fib (on xarelto), GERD, HTN , osteoporosis, RA c/o right middle finger swelling and pain x 1 week. HISTORY OF PRESENT ILLNESS: the patient denies any trauma to the finger, states the swelling and pain started out of nowhere. She states she felt feverish yesterday but never took a temp. She denies streaking. Vital signs on arrival are within normal limits. Allergies: None Social history: No smoking. No alcohol. No illicit drugs. Surgical history: Right Ovarian Cyst, Dental Surgery PMD: Dr. Montgomery REVIEW OF SYSTEMS: GENERAL/CONSTITUTIONAL: Subjective fever/chills. No weakness. No weight change. MUSCULOSKELETAL: +right middle finger redness, swelling and pain. No neck or back pain. SKIN: No rash or easy bruising. NEUROLOGIC: No headache, vertigo, loss of consciousness, or loss of sensation. PHYSICAL EXAM: VITAL_SIGNS: within normal limits GENERAL_APPEARANCE: alert, cooperative, no obvious discomfort. MENTAL_STATUS: speech clear, oriented X 3, responds appropriately to questions. NEURO: motor intact and sensory intact in injured extremity. EXTREMITIES: good pulse in injured extremity. Significant swelling to 3rd right DIP joint with erythema, warmth and TTP. Very painful flexion and extension of that joint. Does not appear to be a paronychia. No streaking. SKIN: warm, dry, good color. Past History - Past Medical History Allergies/Adverse Reactions: Allergies Allergy/AdvReac Type Severity Reaction Status Date / Time No Known Allergies Allergy Verified 12/29/17 16:15 Home Medications: Ambulatory Orders Atorvastatin Ca [Lipitor] 20 mg PO HS #30 tablet 06/21/16 Metoprolol Succinate [Toprol XL -] 25 mg PO DAILY #30 tab.sr.24h 06/21/16 Rivaroxaban [Xarelto -] 1 tab PO HS 04/18/17 Albuterol Sulfate Inhaler - [Ventolin HFA Inhaler -] 1 - 2 inh PO Q4H #1 inhaler 07/23/17 Chlorpheniramine/Dextromethorp [Coricidin Hbp Cough & Cold Tab] 1 each PO Q6H # 20 tablet 07/23/17 Acetaminophen [Tylenol .Regular Strength -] 650 mg PO Q4H PRN tablet 12/22/17 Amitriptyline HCl [Elavil -] 10 mg PO HS #30 tablet 12/22/17 Baclofen [Lioresal -] 5 mg PO BID #20 tablet 12/22/17 Diphenhydramine HCl [Benadryl Capsule -] 25 mg PO HS capsule 12/22/17 Indomethacin [Indocin -] 50 mg PO TID #21 capsule 12/29/17 Cardiac Disorders: Yes (AF) COPD: No HTN: Yes Hypercholesterolemia: Yes - Surgical History Abdominal Surgery: Yes (ABD SX) Orthopedic Surgery: Yes (RT FOOT) - Immunization History Immunization Up to Date: Yes - Suicide/Smoking/Psychosocial Hx Smoking History: Never smoked Have you smoked in the past 12 months: No Hx Alcohol Use: No Drug/Substance Use Hx: No Substance Use Type: None Hx Substance Use Treatment: No *Physical Exam - Vital Signs Last Vital Signs Temp Pulse Resp BP Pulse Ox 98.3 F 78 18 147/96 100 12/29/17 16:13 12/29/17 16:13 12/29/17 16:13 12/29/17 16:13 12/29/17 16:13 ED Treatment Course - LABORATORY CBC & Chemistry Diagram: 12/29/17 17:10 12/29/17 17:10 Medical Decision Making - Medical Decision Making A/P: 77 y/o female with possible septic joint. Plan is as follows: 1. Labs 2. Finger xray Xray right finger IMPRESSION: (wet read) Suspected gout of right middle DIP joint. Spoke with Dr. Hernández about the case. She also believes xray shows gout. Labs unremarkable. Good kidney function. WIll send rx for indomethicin. Instructed her to take as prescribed and f/u with her doctor within 1 week. The patient verbalizes understanding of all instructions, has no further questions and is awaiting discharge. Pharmacy called; she is on Coumadin. Cancelled order for indemethacin and prescribed colchicine instead - verbal order taken at [facility]. *DC/Admit/Observation/Transfer Diagnosis at time of Disposition: Gout Qualifiers: Gout site: hand Encounter type: initial encounter Chronicity: acute Laterality : right - Discharge Dispostion Disposition: HOME Condition at time of disposition: Good - Prescriptions Prescriptions: Indomethacin [Indocin -] 50 mg PO TID #21 capsule - Referrals Referrals: Sulema Montgomery MD [Primary Care Provider] - - Patient Instructions Printed Discharge Instructions: DI for Gout Additional Instructions: Discharge Instructions: -You have gout -A prescription has been sent to your pharmacy -Please follow up with your doctor within 1 week -Return to the ER with any worsening or concerning symptoms - Post Discharge Activity
[2017-12-29 17:15] LABS: BASO % 0.5 % (0-2.0); EOS % 0.4 % (0-4.5); HEMATOCRIT 34.3 % (32.4-45.2); HEMOGLOBIN 11.4 GM/dL (10.7-15.3); LYMPH % 11.6 % (8-40); MCH 27.3 pg (25.7-33.7); MCHC 33.2 g/dl (32.0-36.0); MEAN CELL VOLUME 82.2 fl (80-96); MEAN PLT VOLUME 7.5 fl (7.5-11.1); MONO % 6.7 % (3.8-10.2); NEUT % 80.8 % (42.8-82.8); PLATELET COUNT 447 K/MM3 (134-434); RBC 4.17 M/mm3 (3.60-5.2); WHITE BLOOD COUNT 12.3 K/mm3 (4.0-10.0)
[2017-12-29 17:58] LABS: ALBUMIN 3.3 g/dl (3.4-5.0); ANION GAP 8 (8-16); BLOOD UREA NITROGEN 11 mg/dL (7-18); CALCIUM 8.9 mg/dL (8.5-10.1); CHLORIDE 106 mmol/L (98-107); CO2 26 mmol/L (21-32); GLUCOSE,RANDOM 104 mg/dL (74-106); POTASSIUM 4.1 mmol/L (3.5-5.1); SODIUM 140 mmol/L (136-145)
[2017-12-29 18:02] LABS: BILIRUBIN,TOTAL 0.3 mg/dL (0.2-1.0); CREATININE 0.6 mg/dL (0.55-1.02); SGOT/AST 23 U/L (15-37); SGPT/ALT 23 U/L (12-78); TOT PROT 7.5 g/dl (6.4-8.2)
[2017-12-29 18:03] LABS: ALK PHOS 85 U/L (45-117)
== END 2017-12-29 18:39 | disposition home or self-care (01) ==
LOC: JERFT 16:04
DX: M10.9 Gout, unspecified (principal); I48.91 Unspecified atrial fibrillation; Z79.01 Long term (current) use of anticoagulants; I10 Essential (primary) hypertension; K21.9 Gastro-esophageal reflux disease without esophagitis; E78.00 Pure hypercholesterolemia, unspecified; M06.9 Rheumatoid arthritis, unspecified
CPT/HCPCS: 36415; 73140-TC-RT-FY; 80053; 85025; 99281-25

== ENCOUNTER 2018-05-13 23:49 | Emergency (ER) | payer OTHER ==
[2018-05-14 00:54] VITALS: BP 147/67; PULSE 67; TEMP 98.4; BMI 23.0
[2018-05-14] MEDS ORDERED: AMOX TR/POT CLAV 875MG/125MG TABLETS (FP) PO ONE (01:06)
[2018-05-14] MEDS ORDERED: DIPHTH,PERTUSS(ACELL),TET 0.5 ML DISP.SYRIN IM ONE (01:06)
--- NOTE | 2018-05-14 01:06 | PDOC ---
History of Present Illness - General Chief Complaint: Bite Stated Complaint: DOGBITE Time Seen by Provider: 05/14/18 00:41 History Source: Patient Exam Limitations: No Limitations - History of Present Illness Initial Comments: 05/14/18 01:55 Pt is a 77 y/o F with PMH of afib (on eliquis), HTN, HLD, presents to the ED for a dog bite. Pt states that she was bit by her son's mastiff at home. She lives with her son. She was feeding the dog, when he turned around and lunged at her. She states she has a cut to her L cheek, and L chin. Her son is present and states the dog is UTD on his rabies vaccinations. Pt does not remember the date of her last tetanus shot. Denies numbness and tingling to the face, weakness, fevers, chills. Past History - Travel Traveled outside of the country in the last 30 days: No Close contact w/someone who was outside of country & ill: No - Past Medical History Allergies/Adverse Reactions: Allergies Allergy/AdvReac Type Severity Reaction Status Date / Time No Known Allergies Allergy Verified 05/14/18 00:52 Home Medications: Ambulatory Orders Atorvastatin Ca [Lipitor] 20 mg PO HS #30 tablet 06/21/16 Metoprolol Succinate [Toprol XL -] 25 mg PO DAILY #30 tab.sr.24h 06/21/16 Rivaroxaban [Xarelto -] 1 tab PO HS 04/18/17 Albuterol Sulfate Inhaler - [Ventolin HFA Inhaler -] 1 - 2 inh PO Q4H #1 inhaler 07/23/17 Chlorpheniramine/Dextromethorp [Coricidin Hbp Cough & Cold Tab] 1 each PO Q6H # 20 tablet 07/23/17 Acetaminophen [Tylenol .Regular Strength -] 650 mg PO Q4H PRN tablet 12/22/17 Amitriptyline HCl [Elavil -] 10 mg PO HS #30 tablet 12/22/17 Baclofen [Lioresal -] 5 mg PO BID #20 tablet 12/22/17 Diphenhydramine HCl [Benadryl Capsule -] 25 mg PO HS capsule 12/22/17 Indomethacin [Indocin -] 50 mg PO TID #21 capsule 12/29/17 Amox-Tr/K Cl [Augmentin - 875Mg Tablet] 1 tab PO BID #14 tablet 05/14/18 Mupirocin 1 applic TP BID #1 tube 05/14/18 Cardiac Disorders: Yes (AF) COPD: No HTN: Yes Hypercholesterolemia: Yes - Surgical History Abdominal Surgery: Yes (ABD SX) Orthopedic Surgery: Yes (RT FOOT) - Immunization History Immunization Up to Date: Yes - Suicide/Smoking/Psychosocial Hx Smoking History: Never smoked Have you smoked in the past 12 months: No Information on smoking cessation initiated: No Hx Alcohol Use: No Drug/Substance Use Hx: No Substance Use Type: None Hx Substance Use Treatment: No Review of Systems - Review of Systems Able to Perform ROS?: Yes Comments:: 05/14/18 03:58 CONSTITUTIONAL: Absent: fever, chills, diaphoresis, generalized weakness, malaise, loss of appetite HEENT: Absent: rhinorrhea, nasal congestion, throat pain, throat swelling, difficulty swallowing, mouth swelling, ear pain, eye pain, visual Changes CARDIOVASCULAR: Absent: chest pain, loss of consciousness, palpitations, irregular heart rate, peripheral edema RESPIRATORY: Absent: cough, shortness of breath, dyspnea with exertion, orthopnea, wheezing, stridor, hemoptysis GASTROINTESTINAL: Absent: abdominal pain, abdominal distension, nausea, vomiting, diarrhea, constipation, melena, hematochezia GENITOURINARY: Absent: dysuria, frequency, urgency, hesitancy, hematuria, flank pain, genital pain MUSCULOSKELETAL: Absent: myalgia, arthralgia, joint swelling SKIN: Absent: rash, itching, pallor HEMATOLOGIC/IMMUNOLOGIC: Absent: easy bleeding, easy bruising, lymphadenopathy, frequent infections ENDOCRINE: Absent: unexplained weight gain, unexplained weight loss, heat intolerance, cold intolerance NEUROLOGIC: Absent: headache, focal weakness or paresthesias, dizziness, unsteady gait, seizure, mental status changes, bladder or bowel incontinence PSYCHIATRIC: Absent: anxiety, depression, suicidal or homicidal ideation, hallucinations. Is the patient limited [place] proficient: No *Physical Exam - Vital Signs Last Vital Signs Temp Pulse Resp BP Pulse Ox 98.4 F 67 18 147/67 98 05/13/18 23:49 05/13/18 23:49 05/13/18 23:49 05/13/18 23:49 05/13/18 23:49 *DC/Admit/Observation/Transfer Diagnosis at time of Disposition: Dog bite Qualifiers: Encounter type: initial encounter Qualified Code(s): W54.0XXA - Bitten by dog, initial encounter - Discharge Dispostion Disposition: HOME Condition at time of disposition: Stable Decision to Admit order: No - Prescriptions Prescriptions: Amox-Tr/K Cl [Augmentin - 875Mg Tablet] 1 tab PO BID #14 tablet Mupirocin 1 applic TP BID #1 tube - Referrals Referrals: Saad Eller MD [Staff Physician] - - Patient Instructions Printed Discharge Instructions: DI for Animal Bites Additional Instructions: You were bit by a dog Keep the affected area clean and dry Your tetanus shot was updated today Please take the augmentin twice a day for one week. Please finish the entire dose even if you feel better Follow up with your primary care doctor in 2-3 days Return to the ED if you have worsening area of redness, purulent discharge, fevers, or any changes in your symptoms - Post Discharge Activity
[2018-05-14] MEDS ORDERED: AMOX TR/POT CLAV 875MG/125MG TABLETS (FP) ONE (01:31)
== END 2018-05-14 02:43 | disposition home or self-care (01) ==
LOC: JER 23:49
PROC: 3E0234Z Introduction of Serum, Toxoid and Vaccine into Muscle, Percutaneous Approach (ICD-10-PCS; principal; 2018-05-13)
DX: S01.85XA Open bite of other part of head, initial encounter (principal); S01.452A Open bite of left cheek and temporomandibular area, initial encounter; W54.0XXA Bitten by dog, initial encounter; Y93.89 Activity, other specified; Y92.009 Unspecified place in unspecified non-institutional (private) residence as the place of occurrence of the external cause; I10 Essential (primary) hypertension; I48.91 Unspecified atrial fibrillation; Z79.01 Long term (current) use of anticoagulants; E78.00 Pure hypercholesterolemia, unspecified
CPT/HCPCS: 90471; 90715; 99282-25

== ENCOUNTER 2019-01-04 14:36 | Inpatient (IN) | payer OTHER ==
--- NOTE | 2019-01-04 15:05 | PDOC ---
History of Present Illness - General Chief Complaint: Edema Stated Complaint: RT. ARM LUMP Time Seen by Provider: 01/04/19 15:05 History Source: Patient, Family - History of Present Illness Initial Comments: 01/04/19 15:33 Patient is a 78 year old female with history of Afib (on xarelto), hypertension , hyperlipidemia, presents with complaint of left upper extremity skin redness. Began approx 8AM this morning as a 5cm x 3cm area of erythema that was firm and tender to palpation. She endorses that the erythema has spread inferiorly along her arm throughout the day. She denies any trauma to the arm. Denies any drainage. She denies ever having similar symptoms before. Denies weakness of her upper extremity or change in sensation. Patient endorses compliance with her anticoagulant, without missed doses. She denies subjective fevers, chills, shortness of breath, chest pain, palpitations, abdominal pain, nausea, vomiting. Past History - Past Medical History Allergies/Adverse Reactions: Allergies Allergy/AdvReac Type Severity Reaction Status Date / Time No Known Allergies Allergy Verified 01/04/19 14:43 Home Medications: Ambulatory Orders Atorvastatin Ca [Lipitor] 20 mg PO HS #30 tablet 06/21/16 Metoprolol Succinate [Toprol XL -] 25 mg PO DAILY #30 tab.sr.24h 06/21/16 Rivaroxaban [Xarelto] 1 tab PO HS 04/18/17 Albuterol Sulfate Inhaler - [Ventolin HFA Inhaler -] 1 - 2 inh PO Q4H #1 inhaler 07/23/17 Chlorpheniramine/Dextromethorp [Coricidin Hbp Cough & Cold Tab] 1 each PO Q6H # 20 tablet 07/23/17 Acetaminophen [Tylenol .Regular Strength -] 650 mg PO Q4H PRN tablet 12/22/17 Amitriptyline HCl [Elavil -] 10 mg PO HS #30 tablet 12/22/17 Baclofen [Lioresal -] 5 mg PO BID #20 tablet 12/22/17 Diphenhydramine HCl [Benadryl Capsule -] 25 mg PO HS capsule 12/22/17 Indomethacin [Indocin -] 50 mg PO TID #21 capsule 12/29/17 Amox-Tr/K Cl [Augmentin - 875Mg Tablet] 1 tab PO BID #14 tablet 05/14/18 Mupirocin 1 applic TP BID #1 tube 05/14/18 Cardiac Disorders: Yes (AF) COPD: No HTN: Yes Hypercholesterolemia: Yes - Surgical History Abdominal Surgery: Yes (ABD SX) Orthopedic Surgery: Yes (RT FOOT) - Immunization History Immunization Up to Date: Yes - Suicide/Smoking/Psychosocial Hx Smoking History: Never smoked Have you smoked in the past 12 months: No Information on smoking cessation initiated: No Hx Alcohol Use: No Drug/Substance Use Hx: No Substance Use Type: None Hx Substance Use Treatment: No Review of Systems - Review of Systems Constitutional: No: Chills, Diaphoresis, Fever, Weakness HEENTM: No: Blurred Vision, Double Vision, Throat Swelling, Difficulty Swallowing Respiratory: No: Cough, Shortness of Breath, Stridor, Wheezing, Hemoptysis Cardiac (ROS): No: Chest Pain, Lightheadedness, Palpitations, Syncope ABD/GI: No: Abdominal Distended, Blood Streaked Bowels, Nausea, Vomiting : No: Dysuria, Discharge, Hematuria, Pain Integumentary: Yes: Erythema, Other (admits warmth overlying erythema) Neurological: No: Headache, Numbness, Paresthesia, Weakness *Physical Exam - Vital Signs Last Vital Signs Temp Pulse Resp BP Pulse Ox 98.0 F 72 16 151/48 L 98 01/04/19 14:43 01/04/19 14:43 01/04/19 14:43 01/04/19 14:43 01/04/19 14:43 - Physical Exam General Appearance: Yes: Appropriately Dressed. No: Apparent Distress HEENT: positive: EOMI, SHERICE. negative: Scleral Icterus (R), Scleral Icterus (L) , Pharyngeal Erythema, Tonsillar Exudate Neck: positive: Trachea midline, Supple Respiratory/Chest: positive: Lungs Clear, Normal Breath Sounds. negative: Respiratory Distress, Crackles, Rales, Rhonchi, Stridor, Wheezing Cardiovascular: positive: Regular Rhythm, Regular Rate, S1, S2, Murmur ( holosystolic murmur). negative: Irregular Integumentary: positive: Dry, Warm, Erythema (along left upper extremity, with streaking), Other (left upper extremity erythema with streaking; tender to palpation) Neurologic: positive: sheet cutter II-XII NML intact, Alert, Normal Mood/Affect, Motor Strength 12/29 ED Treatment Course - LABORATORY CBC & Chemistry Diagram: 01/04/19 16:10 01/04/19 16:10 Medical Decision Making - Medical Decision Making 01/04/19 15:53 Patient is a 78 year old female with history of Afib, hypertension, hyperlipidemia presents with complaint of left upper extremity erythema and pain. Differential diagnosis of superficial thrombophlebitis vs. cellulitis, vs. lymphangitis Will obtain CBC, BMP, Left upper extremity duplex US Empiric Vancomycin 1 gram IV one time dose 01/04/19 18:18 Patient afebrile. No WBC count. Given streaking of her erythema, will admit for observation on IV antibiotics. *DC/Admit/Observation/Transfer Diagnosis at time of Disposition: Cellulitis - Discharge Dispostion Decision to Admit order: Yes - Referrals Referrals: Marline Montgomery MD [Non Staff, Medical] - - Patient Instructions - Post Discharge Activity
[2019-01-04] MEDS ORDERED: VANCOMYCIN 1 GM in D5W (PRE-DOCKED) 1,000 MG/250 ML IVPB ONE (15:49)
[2019-01-04] MEDS ORDERED: VANCOMYCIN 1 GRAM (PRE-DOCKED) 1,000 MG/250 ML BAG IVPB ONE (16:09)
--- NOTE | 2019-01-04 16:17 | PDOC ---
Documentation entered by Daryl Herman SCRIBE, acting as scribe for Franklyn Willis MD. Franklyn Willis MD: This documentation has been prepared by the matilde, Daryl Herman SCRIBE, under my direction and personally reviewed by me in its entirety. I confirm that the documentation accurately reflects all work, treatment, procedures, and medical decision making performed by me. Attending Attestation - Resident Resident Name: Yomi Fay - ED Attending Attestation I have performed the following: I have examined & evaluated the patient, The case was reviewed & discussed with the resident, I agree w/resident's findings & plan, Exceptions are as noted - HPI HPI: 01/04/19 15:36 The patient is a 78 year old female with a significant past medical history of afib (on eliquis), hypertension, hyperlipidemia and arthritis who presents to the emergency department with L upper extremity redness and swelling for 1 day. The patient states she first noticed swelling and redness near her L bicep. The patient denies any insect bites or trauma. She states that the area was very firm and hard. Over the day, it gradually spread down her arm. Pt endorses pain with palpation of the area. NO significant itching. The patient denies any numbness, weakness or tingling sensations. No significant swelling distal to the red area. She denies any fever chills, nausea, vomiting, diarrhea, constipation or urinary symptoms. The patient denies any other complaints. - Physicial Exam PE: 01/04/19 16:12 "GENERAL: Awake, alert, and fully oriented, in no acute distress. HEAD: No signs of trauma EYES: PERRLA, EOMI, sclera anicteric, conjunctiva clear ENT: Auricles normal inspection, hearing grossly normal, nares patent, oropharynx clear without exudates. Moist mucosa NECK: Nontender, no stepoffs, Normal ROM, supple, no lymphadenopathy, JVD, or masses LUNGS: Breath sounds equal, clear to auscultation bilaterally. No wheezes, and no crackles HEART: Regular rate and rhythm, normal S1 and S2, no murmurs, rubs or gallops ABDOMEN: Soft, nontender, normoactive bowel sounds. No guarding, no rebound. No masses EXTREMITIES: + LUE with 4cm area of induration and erythema, + red streaking down forearm NEUROLOGICAL: Cranial nerves II through XII intact. 5/5 strength and sensation in all extremities, Normal speech, normal gait, normal cerebellar function SKIN: Warm, Dry, normal turgor, no rashes or lesions noted. - Medical Decision Making 01/04/19 16:13 78 F with erythematous area of induration to LUE, with red streaking. Concerning for possible superficial thrombophlebitis vs lymphangitis. - Labs - Doppler LUE - IV vanco
[2019-01-04 16:25] LABS: HEMATOCRIT 36.5 % (32.4-45.2); HEMOGLOBIN 11.9 GM/dL (10.7-15.3); MCH 28.7 pg (25.7-33.7); MCHC 32.6 g/dl (32.0-36.0); MEAN CELL VOLUME 87.9 fl (80-96); MEAN PLT VOLUME 8.6 fl (7.5-11.1); PLATELET COUNT 298 K/MM3 (134-434); RBC 4.15 M/mm3 (3.60-5.2); WHITE BLOOD COUNT 7.6 K/mm3 (4.0-10.0)
[2019-01-04 16:54] LABS: CALCIUM 9.6 mg/dL (8.5-10.1); CREATININE 0.6 mg/dL (0.55-1.3); POTASSIUM 4.6 mmol/L (3.5-5.1)
--- NOTE | 2019-01-04 19:07 | PN ---
Teaching Attending Note Name of Resident: Jackson Brantley ATTENDING PHYSICIAN STATEMENT I saw and evaluated the patient. I reviewed the resident's note and discussed the case with the resident. I agree with the resident's findings and plan as documented. SUBJECTIVE: Patient is a 78 year old woman with history of Afib (on xarelto), dog bite, GERD , rheumatoid arthritis, hypertension and hyperlipidemia who presents with complaint of left upper extremity skin redness. Began about 8AM this morning as a 5cm x 3cm area of erythema that was firm and tender to palpation. She says that the erythema has spread inferiorly along her arm throughout the day. She denies any trauma to the arm. Denies any drainage. She denies ever having similar symptoms before. Denies weakness of her upper extremity or change in sensation. Patient is compliant with her anticoagulant. She denies fever, chills , shortness of breath, chest pain, palpitations, abdominal pain, nausea or vomiting. OBJECTIVE: Alert Vital Signs Period Temp Pulse Resp BP Sys/Neri Pulse Ox Last 24 Hr 98.0 F 72 16 151/48 98-99 HEENT: No Jaundice, eye redness or discharge, PERRLA, EOMI. Normocephalic, atraumatic. External ears are normal and hearing is grossly intact. No nasal discharge. Neck: Supple, nontender. No palpable adenopathy or thyromegaly. No JVD Chest: Good effort. Clear to auscultation and percussion. Heart: Regular. No S3, rub or murmur Abdomen: Not distended, soft, nontender and no HSM. No rebound or guarding. Normal bowel sounds. Ext: Peripheral pulses intact. No leg edema. Area of induration and erythema in LUE, tender; streaking erythema down the forearm. Skin: Warm and dry. No petechiae, rash or ecchymosis. Neuro: Alert. Oriented x3. CN 2-12 grossly intact. Sensation grossly intact in all four extremities and DTR are symmetric. Psych: Appropriate mood and affect. Good insight. Home Medications Medication Instructions Recorded Atorvastatin Ca [Lipitor] 20 mg PO HS #30 tablet 06/21/16 Metoprolol Succinate [Toprol XL -] 25 mg PO DAILY #30 tab.sr.24h 06/21/16 Rivaroxaban [Xarelto] 1 tab PO HS 04/18/17 Albuterol Sulfate Inhaler - 1 - 2 inh PO Q4H #1 inhaler 07/23/17 [Ventolin HFA Inhaler -] Chlorpheniramine/Dextromethorp 1 each PO Q6H #20 tablet 07/23/17 [Coricidin Hbp Cough & Cold Tab] Acetaminophen [Tylenol .Regular 650 mg PO Q4H PRN tablet 12/22/17 Strength -] Amitriptyline HCl [Elavil -] 10 mg PO HS #30 tablet 12/22/17 Baclofen [Lioresal -] 5 mg PO BID #20 tablet 12/22/17 Diphenhydramine HCl [Benadryl 25 mg PO HS capsule 12/22/17 Capsule -] Indomethacin [Indocin -] 50 mg PO TID #21 capsule 12/29/17 Amox-Tr/K Cl [Augmentin - 875Mg 1 tab PO BID #14 tablet 05/14/18 Tablet] Mupirocin 1 applic TP BID #1 tube 05/14/18 Abnormal Lab Results 01/04/19 16:10 Anion Gap 5 L ASSESSMENT AND PLAN: 1. Left upper extremity cellulitis - No obvious risk factor. Denies any scratch or bite from the same dog that bit her last year. No DVT or thrombophlebitis on doppler scan. Will send blood cultures, continue vancomycin 1 gm IV q 12 hours and consult ID. Continue Xarelto for Afib. 2. Uncontrolled Hypertension - Monitor BP and determine whether she needs additional antihypertensive drugs. Revise regimen to ensure smooth round-the- clock good BP control. Nonpharmacologic measures to control hypertension like weight loss, salt restriction and exercise discussed. 3. DVT prophylaxis - On Xarelto for Afib 4. Advance directives - Full code
--- NOTE | 2019-01-04 19:29 | HP ---
CHIEF COMPLAINT: Swelling and redness in left upper arm PCP: Dr. Sulema Nelson HISTORY OF PRESENT ILLNESS: Pt. is a 78 y.o. F w/ PMHx. of Afib(on Eliquis), HTN , HLD and Osteoporosis presents for 1 day history of left upper extremity swelling. Pt. states that she woke up this monring at around 8 am and noticed that her left upper arm was red and swollen just superior to the antecubital fossa. Pt. states that the area was about 5cm x 2cm and has been progressively getting bigger. Pt. states she became concerned that it was a clot because it has a raised feeling to it. Pt. denies any pruritis around the area. Pt. denies any trauma to the site, bites of any kind including dogs or cats. Pt. endorses chills on Sunday and Sunday but none since then. Pt. denies fevers, numbness/ tingling, weakness, chest pain, weight loss, abdominal pain, diarrhea or constipation. Pt. endorses long-standing 3 pillow orthopnea. ER course was notable for: (1)RUE Arterial Duplex (2)CBC, BMP, Vitals (3) Vancomycin Recent Travel: No PAST MEDICAL HISTORY: As above PAST SURGICAL HISTORY: Dental Surgery (2014), Right knee surgery? Social History: Smoking: Denies, never Alcohol: Denies, occasional glass of wine at [place] Drugs: Denies, never Family History: Mom- [place] ( @72), Dad-DM( in 70s form complications of DM), Brother- "Throat CA( @59) Allergies No Known Allergies Allergy (Verified 01/04/19 14:43) HOME MEDICATIONS: Home Medications Medication Instructions Recorded Atorvastatin Ca [Lipitor] 20 mg PO HS #30 tablet 06/21/16 Rivaroxaban [Xarelto] 1 tab PO HS 04/18/17 Alendronate Sodium [Binosto] 5 mg PO 01/04/19 Metoprolol Succinate [Toprol XL -] 25 mg PO BID 01/04/19 REVIEW OF SYSTEMS CONSTITUTIONAL: Absent: fever, chills, diaphoresis, generalized weakness, malaise, loss of appetite, weight change HEENT: Absent: rhinorrhea, nasal congestion, throat pain, throat swelling, difficulty swallowing, mouth swelling, ear pain, eye pain, visual changes CARDIOVASCULAR: Absent: chest pain, syncope, palpitations, irregular heart rate, lightheadedness , peripheral edema RESPIRATORY: Absent: cough, shortness of breath, dyspnea with exertion, orthopnea, wheezing, stridor, hemoptysis GASTROINTESTINAL: Absent: abdominal pain, abdominal distension, nausea, vomiting, diarrhea, constipation, melena, hematochezia GENITOURINARY: Absent: dysuria, frequency, urgency, hesitancy, hematuria, flank pain, genital pain MUSCULOSKELETAL: Absent: myalgia, arthralgia, joint swelling, back pain, neck pain SKIN: rash Absent: , itching, pallor HEMATOLOGIC/IMMUNOLOGIC: Absent: easy bleeding, easy bruising, lymphadenopathy, frequent infections ENDOCRINE: Absent: unexplained weight gain, unexplained weight loss, heat intolerance, cold intolerance NEUROLOGIC: Absent: headache, focal weakness or paresthesias, dizziness, unsteady gait, seizure, mental status changes, bladder or bowel incontinence PSYCHIATRIC: Absent: anxiety, depression, suicidal or homicidal ideation, hallucinations. PHYSICAL EXAMINATION Vital Signs - 24 hr 01/04/19 01/04/19 01/04/19 14:43 15:33 19:26 Temperature 98.0 F 98.2 F Pulse Rate 72 Pulse Rate [ 64 Apical] Respiratory 16 18 Rate Blood Pressure 151/48 L Blood Pressure 136/50 L [Left Arm] O2 Sat by Pulse 98 99 100 Oximetry (%) GENERAL: Awake, alert, and fully oriented, in no acute distress. HEAD: Normal with no signs of trauma. EYES: extraocular movements intact, sclera anicteric, conjunctiva clear. EARS, NOSE, THROAT: Ears normal, nares patent, oropharynx clear without exudates. Moist mucous membranes. NECK: Normal range of motion LUNGS: Breath sounds equal, clear to auscultation bilaterally. No wheezes, and no crackles. No accessory muscle use. HEART: Irregular rate and rhythm, normal S1 and S2 ABDOMEN: Soft, nontender, not distended, normoactive bowel sounds, no guarding, no rebound MUSCULOSKELETAL: No tenderness. No CVA tenderness. UPPER EXTREMITIES: 2+radialpulses, warm, well-perfused. No cyanosis. No clubbing. No peripheral edema. LOWER EXTREMITIES: 2+ dorsal pedal pulses, warm, well-perfused. No calf tenderness. No peripheral edema. NEUROLOGICAL: Normal speech. PSYCHIATRIC: Cooperative. Good eye contact. Appropriate mood and affect. SKIN: Warm, dry, normal turgor, LUE streaking erythema with palpable cord-like mass, normal capillary refill. Laboratory Results - last 24 hr 01/04/19 01/04/19 16:10 16:10 WBC 7.6 RBC 4.15 Hgb 11.9 Hct 36.5 MCV 87.9 MCH 28.7 MCHC 32.6 RDW 14.0 Plt Count 298 D MPV 8.6 D Sodium 140 Potassium 4.6 Chloride 107 Carbon Dioxide 27 Anion Gap 5 L BUN 14 Creatinine 0.6 Est GFR (CKD-EPI)AfAm 102.62 Est GFR (CKD-EPI)NonAf 88.54 Random Glucose 90 Calcium 9.6 ASSESSMENT/PLAN: Pt. is a 78 y.o. F w/ PMHx. of Afib(on Eliquis), HTN, HLD and Osteoporosis presents for 1 day history of left upper extremity swelling. #Cellulitis Streaking, with palpable cord-like mass Pre-Preliminary reading does not show obstruction f/u official read of Arterial duplex to rule out superficial thrombophlebitis--> if positive consider CTAP with contrast to evaluate for Pancreatic Ca. ID consult(Dr. Thayer) appreciated c/w Vancomycin Afebrile, no WBC elevation BCx. not sent b/c Pt. has no systemic symptoms, will obtain if Pt. becomes febrile. #Afib c/w Toprol 25mg BID c/w Xarelto 15mg #HTN c/w Toprol trend BP, currently 151/48 #HLD c/w Atorvastatin 20mg #FEN no IVF, Pt. is not septic. encourage PO intake monitor electrolytes and replete as needed Na Restricted Diet #DVT Ppx. c/w Xarelto
[2019-01-04] MEDS ORDERED: RIVAROXABAN 15 MG TABLET PO SCH (20:45)
[2019-01-04] MEDS ORDERED: ATORVASTATIN CA 20 MG TABLET (FP) PO SCH (22:00)
[2019-01-04] MEDS: metoPROLOL SUCCINATE 25 MG TAB.SR.24H (FP) PO SCH (22:28)
[2019-01-04 22:55] VITALS: BMI 21.8
[2019-01-05 07:02] LABS: BASO % 0.6 % (0-2.0); EOS % 2.2 % (0-4.5); HEMATOCRIT 37.1 % (32.4-45.2); HEMOGLOBIN 12.1 GM/dL (10.7-15.3); LYMPH % 32.8 % (8-40); MCH 28.7 pg (25.7-33.7); MCHC 32.6 g/dl (32.0-36.0); MEAN CELL VOLUME 87.9 fl (80-96); MEAN PLT VOLUME 8.3 fl (7.5-11.1); MONO % 8.8 % (3.8-10.2); NEUT % 55.6 % (42.8-82.8); PLATELET COUNT 308 K/MM3 (134-434); RBC 4.23 M/mm3 (3.60-5.2); RDW 13.6 % (11.6-15.6); WHITE BLOOD COUNT 6.4 K/mm3 (4.0-10.0)
[2019-01-05 07:34] LABS: ALBUMIN 3.4 g/dl (3.4-5.0); CALCIUM 8.9 mg/dL (8.5-10.1); CREATININE 0.6 mg/dL (0.55-1.3); MAGNESIUM 2.2 mg/dL (1.8-2.4); PHOSPHOROUS 3.3 mg/dL (2.5-4.9); POTASSIUM 4.7 mmol/L (3.5-5.1); TOT PROT 6.7 g/dl (6.4-8.2)
[2019-01-05] MEDS ORDERED: ALENDRONATE SODIUM 5 MG PO SCH (10:00)
[2019-01-05] MEDS: metoPROLOL SUCCINATE 25 MG TAB.SR.24H (FP) PO SCH (10:18)
[2019-01-05] MEDS ORDERED: CEPHALEXIN MONOHYDRATE 500 MG CAPSULE (UD) PO SCH (12:15)
--- NOTE | 2019-01-05 12:24 | DS ---
Physical Exam: SUBJECTIVE: Patient seen and examined, left arm symptoms markedly improved. No fevers, chills or pain. Reports unintentional weight loss over last year. OBJECTIVE: Vital Signs Period Temp Pulse Resp BP Sys/Neri Pulse Ox Last 24 Hr 97.8 F-98.5 F 59-72 16-18 130-151/48-70 98-100 Intake & Output 01/02/19 01/03/19 01/04/19 01/05/19 23:59 23:59 23:59 23:59 Intake Total 0 0 Balance 0 0 Weight 127 lb 6 oz PHYSICAL EXAM GENERAL: The patient is awake, alert, and fully oriented, in no acute distress. HEAD: Normal with no signs of trauma. EYES: PERRL, extraocular movements intact, sclera anicteric, conjunctiva clear. ENT: Ears normal, nares patent, oropharynx clear without exudates, moist mucous membranes. NECK: Trachea midline, full range of motion, supple. LUNGS: Breath sounds equal, clear to auscultation bilaterally, no wheezes, no crackles, no accessory muscle use. HEART: S1S2 irregular ABDOMEN: Soft, nontender, nondistended, normoactive bowel sounds, no guarding, no rebound EXTREMITIES: left arm/forearm swelling erythema almost resolved, positive pulses PSYCH: Normal mood, normal affect. SKIN: Warm, dry, normal turgor, no rashes or lesions noted. LABS Laboratory Results - last 24 hr 01/04/19 01/04/19 01/05/19 16:10 16:10 05:20 WBC 7.6 6.4 RBC 4.15 4.23 Hgb 11.9 12.1 Hct 36.5 37.1 MCV 87.9 87.9 MCH 28.7 28.7 MCHC 32.6 32.6 RDW 14.0 13.6 Plt Count 298 D 308 MPV 8.6 D 8.3 Absolute Neuts (auto) 3.6 Neutrophils % 55.6 D Lymphocytes % 32.8 D Monocytes % 8.8 Eosinophils % 2.2 D Basophils % 0.6 Nucleated RBC % 0 Sodium 140 Potassium 4.6 Chloride 107 Carbon Dioxide 27 Anion Gap 5 L BUN 14 Creatinine 0.6 Est GFR (CKD-EPI)AfAm 102.62 Est GFR (CKD-EPI)NonAf 88.54 Random Glucose 90 Calcium 9.6 Phosphorus Magnesium Total Bilirubin AST ALT Alkaline Phosphatase Total Protein Albumin 01/05/19 05:20 WBC RBC Hgb Hct MCV MCH MCHC RDW Plt Count MPV Absolute Neuts (auto) Neutrophils % Lymphocytes % Monocytes % Eosinophils % Basophils % Nucleated RBC % Sodium 141 Potassium 4.7 Chloride 107 Carbon Dioxide 31 Anion Gap 4 L BUN 13 Creatinine 0.6 Est GFR (CKD-EPI)AfAm 102.62 Est GFR (CKD-EPI)NonAf 88.54 Random Glucose 88 Calcium 8.9 Phosphorus 3.3 Magnesium 2.2 Total Bilirubin 1.0 AST 15 ALT 22 Alkaline Phosphatase 64 Total Protein 6.7 Albumin 3.4 LUE Duplex: There is no evidence of deep venous thrombosis. The internal jugular, subclavian , axillary and brachial, radial and ulnar veins are widely patent with normal venous flow documented throughout these vessels. The basilic, cephalic and median cubital veins are also patent. IMPRESSION: No evidence of deep venous thrombosis. HOSPITAL COURSE: Date of Admission:01/04/19 Date of Discharge: 01/05/19 Minutes to complete discharge: 40 Discharge Summary Reason For Visit: CELLULITIS Current Active Problems Cellulitis (Acute) Hospital Course: 78 yof with PMHx of afib on xarelto, HTN, hLD, osteoporosis admitted with LUE swelling/redness and reported induration. She received 1 dose of vancomycin in the ED. Her symptoms have almost resolved. She also had LUE duplex neg for DVT. She was seen by infectious disease and advised short course of keflex. She will be discharged in stable condition. Condition: Stable - Instructions Diet, Activity, Other Instructions: MEDICATIONS: Take antibiotic keflex twice daily for 5 more days Continue other medications as before FOLLOW UP: With Primary care doctor in 1 week Routine Cancer screening with your doctor. If you notice any fevers, chills, worsening redness/swelling/pain or any new concerns, please call 911 or come to the ED. Referrals: Sulema Montgomery MD [Primary Care Provider] - Disposition: HOME - Home Medications Comprehensive Discharge Medication List: Ambulatory Orders Atorvastatin Ca [Lipitor] 20 mg PO HS #30 tablet 06/21/16 Rivaroxaban [Xarelto] 1 tab PO HS 04/18/17 Alendronate Sodium [Binosto] 5 mg PO DAILY 01/04/19 Metoprolol Succinate [Toprol XL -] 25 mg PO BID 01/04/19 Cephalexin Monohydrate [Keflex -] 500 mg PO BID 5 Days #10 capsule 01/05/19 This patient is new to me today: Yes Date on this admission: 01/05/19 Emergency Visit: Yes ED Registration Date: 01/04/19 Care time: The patient presented to the Emergency Department on the above date and was hospitalized for further evaluation of their emergent condition. Critical Care patient: No - Discharge Referral Referred to [facility] Med P.C.: No
--- NOTE | 2019-01-05 13:06 | CONS ---
INFECTIOUS DISEASE CONSULTATION DATE OF CONSULTATION: DATE OF DICTATION: 01/05/2019 HISTORY OF PRESENT ILLNESS: The patient is a 78-year-old female who was evaluated for suspected cellulitis of the left upper extremity. She was admitted to the hospital on January 04, 2019, with a 1-day history of left upper extremity erythema and tenderness. She reports a sudden onset of left upper extremity erythema occurring in the area of the left biceps and subsequently extended to the antecubital fossa and to the proximal forearm. She denies any traumatic injury to her upper extremity, no insect or animal bites or scratches. She was evaluated in the emergency room where she was diagnosed with cellulitis and possible superficial thrombophlebitis. Doppler exam was performed and was negative for DVT. She was given a stat dose of vancomycin. She reports significant improvement in the left upper extremity redness and tenderness. It appears to be minimally erythematous and receding from the traced-out margins. MEDICATIONS: Include Lipitor, Toprol, Xarelto, Elavil, baclofen, Benadryl, Indocin. SOCIAL HISTORY: She resides in our community. A nonsmoker, nondrinker. SYSTEMS REVIEW: Neurologic: No loss of consciousness, seizure activity, focal weakness. Cardiac: Negative chest pain or palpitations. Respiratory: Negative for cough or sputum production. Gastrointestinal: Negative for vomiting or diarrhea. Genitourinary: Negative for urinary tract infection. LABORATORY DATA: White count 6.4, hematocrit 37.1, platelet count 308. BUN 13, creatinine 0.6. Liver enzymes normal. No cultures obtained. PHYSICAL EXAM: General: She is an elderly female, tachypneic. Vital Signs: Temperature 97.8, blood pressure 137/70, pulse 59, regular, respirations 18 per minute. HEENT: Sclerae are anicteric. Heart Sounds: S1, S2. Lungs: Clear. Abdomen: Soft, nontender. Extremities: Positive deformity of the left foot. Left upper extremity with palpable cord. IMPRESSION: 1. Superficial thrombophlebitis of the left upper extremity. 2. Possible cellulitis left upper extremity. PLAN: Will prescribe Keflex 500 mg p.o. b.i.d. for 7 days, on compresses, analgesics and outpatient followup. Thank you for the kind referral. YASEMIN RIVERA M.D. [id number]
[2019-01-05 13:54] VITALS: BP 129/70; PULSE 67; TEMP 98.8
[2019-01-05] MEDS ORDERED: RIVAROXABAN 15 MG TABLET PO SCH (18:00)
== END 2019-01-05 16:01 | disposition home or self-care (01) | DRG 603 ==
LOC: SUPCPDRO 14:36 → JER 14:36 → JERBED 18:40 → J7W 21:42
PROVIDERS: ADMIT Internal Medicine; ATTEND Hospitalist
DX: L03.114 Cellulitis of left upper limb (principal); I48.91 Unspecified atrial fibrillation; I10 Essential (primary) hypertension; E78.5 Hyperlipidemia, unspecified; I80.8 Phlebitis and thrombophlebitis of other sites; K21.9 Gastro-esophageal reflux disease without esophagitis; M06.9 Rheumatoid arthritis, unspecified; M81.0 Age-related osteoporosis without current pathological fracture
CPT/HCPCS: 36415; 80048; 80053; 83735; 84100; 85025; 85027; 93971; 97116-GP; 97161-GP; 99285-25

== ENCOUNTER 2020-02-20 18:42 | Emergency (ER) | payer OTHER ==
[2020-02-20 19:18] VITALS: BP 138/71; PULSE 74; TEMP 98.2; BMI 18.8
[2020-02-20 21:22] LABS: BASO % 0.7 % (0-2.0); EOS % 1.8 % (0-4.5); HEMATOCRIT 38.7 % (32.4-45.2); HEMOGLOBIN 12.9 GM/dL (10.7-15.3); LYMPH % 23.8 % (8-40); MCH 29.7 pg (25.7-33.7); MCHC 33.4 g/dl (32.0-36.0); MEAN CELL VOLUME 88.9 fl (80-96); MEAN PLT VOLUME 8.3 fl (7.5-11.1); MONO % 10.2 % (3.8-10.2); NEUT % 63.5 % (42.8-82.8); PLATELET COUNT 295 K/MM3 (134-434); RBC 4.36 M/mm3 (3.60-5.2); RDW 13.3 % (11.6-15.6); WHITE BLOOD COUNT 7.8 K/mm3 (4.0-10.0)
[2020-02-20 21:52] LABS: ALBUMIN 3.9 g/dl (3.4-5.0); BILIRUBIN,TOTAL 0.7 mg/dL (0.2-1); BLOOD UREA NITROGEN 17.1 mg/dL (7-18); CALCIUM 9.6 mg/dL (8.5-10.1); CREATININE 0.7 mg/dL (0.55-1.3); N-TERMINAL BNP 238.7 pg/ml (5-450); TOT PROT 8.2 g/dl (6.4-8.2)
== END 2020-02-20 22:00 | disposition left against medical advice (07) ==
LOC: JER 18:42
DX: R60.0 Localized edema (principal)
CPT/HCPCS: 36415; 80053; 83880; 85025; 93970-TC; 99284-25

== ENCOUNTER 2020-04-21 18:17 | Observation (INO) | payer OTHER ==
[2020-04-21 18:26] VITALS: BMI 25.0
--- NOTE | 2020-04-21 19:29 | PDOC ---
History of Present Illness - General Chief Complaint: Injury Stated Complaint: FALL Time Seen by Provider: 04/21/20 18:58 History Source: Patient, Old Records Exam Limitations: No Limitations - History of Present Illness Initial Comments: 04/21/20 19:29 William Hahn is a Kiswahili-speaking 79F with PMH AFIB on Xarelto, HTN, HLD, osteoporosis, BLE cellulitis, presents with recent syncope and fall with head and right shoulder injury. Reports that she has been eating poorly because she has not been hungry. Yesterday fell several times while doing chores at home, last time was after dinner, was eating dinner at table when she lost consciousness and woke up on the floor, found by son who wanted to bring her to ED but patient refused, does not know if she hit her head but has R shoulder pain, has been worsening overnight and now she cannot move her right shoulder due to pain. Brought in by son for evaluation of her arm. Currently says she feels fine but her shoulder hurts. Denies recent chest pain, SOB, palpitations, abdominal pain, diarrhea, coughing, urinary symptoms, CHURCH, vision changes. Denies tongue biting, loss of bowel/bladder continence, no sz history. Pain in her right arm but denies pain in lower back or extremities, no pain in neck, gait normal. On Eliquis for AFIB. Past History - Medical History Allergies/Adverse Reactions: Allergies Allergy/AdvReac Type Severity Reaction Status Date / Time No Known Allergies Allergy Verified 02/20/20 19:18 Home Medications: Ambulatory Orders Atorvastatin Ca [Lipitor] 20 mg PO HS #30 tablet 06/21/16 Rivaroxaban [Xarelto] 1 tab PO HS 04/18/17 Alendronate Sodium [Binosto] 5 mg PO DAILY 01/04/19 Metoprolol Succinate [Toprol XL -] 25 mg PO BID 01/04/19 Cephalexin Monohydrate [Keflex -] 500 mg PO BID 5 Days #10 capsule 01/05/19 Anemia: No Asthma: No Cardiac Disorders: Yes (AF) CVA: No COPD: No CHF: No Dementia: No Diabetes: Yes GI Disorders: No Disorders: No HTN: Yes Hypercholesterolemia: Yes Seizures: No - Surgical History Abdominal Surgery: Yes (ABD SX) Orthopedic Surgery: Yes (RT FOOT) - Immunization History Immunization Up to Date: Yes - Psycho-Social/Smoking History Smoking History: Never smoked Have you smoked in the past 12 months: No - Substance Abuse Hx (Audit-C & DAST Scrn) How often the patient has a drink containing alcohol: Never Score: In Men: 4 or > Positive; In Women: 3 or > Positive: 0 Screen Result (Pos requires Nsg. Audit-10AR): Negative In the last yr the pt used illegal drug/Rx for NonMed reason: No Score: Yes response is considered Positive: 0 Screen Result (Positive result requires Nsg. DAST-10): Negative Review of Systems - Review of Systems Able to Perform ROS?: Yes Constitutional: No: Symptoms Reported HEENTM: No: Blurred Vision Respiratory: No: Cough, Shortness of Breath, SOB with Exertion, SOB at Rest, Wheezing, Productive cough Cardiac (ROS): Yes: Syncope. No: Chest Pain, Edema, Lightheadedness, Palpitations, Chest Tightness ABD/GI: Yes: Poor Appetite, Poor Fluid Intake. No: Blood Streaked Bowels, Constipated, Diarrhea, Nausea, Vomiting : No: Symptoms Reported Musculoskeletal: Yes: Joint Swelling. No: Back Pain, Joint Pain, Muscle Pain, M uscle Weakness, Neck Pain Integumentary: Yes: Bruising Neurological: No: Headache, Numbness, Paresthesia, Weakness, Unsteady Gait, Dizziness Endocrine: No: Symptoms Reported Hematologic/Lymphatic: No: Symptoms Reported All Other Systems: Reviewed and Negative *Physical Exam - Vital Signs Last Vital Signs Temp Pulse Resp BP Pulse Ox 98.3 F 77 19 173/70 H 98 04/21/20 18:20 04/21/20 18:20 04/21/20 18:20 04/21/20 18:20 04/21/20 18:20 - Physical Exam General Appearance: Yes: Nourished, Appropriately Dressed, Thin. No: Apparent Distress HEENT: positive: EOMI, SHERICE, Normal Voice, Symmetrical, Pharynx Normal. negative: Scleral Icterus (R), Scleral Icterus (L), Pharyngeal Erythema, Tonsillar Exudate, Tonsillar Erythema, Hearing Grossly Normal Neck: positive: Trachea midline. negative: Tender, Rigid, Supple, Decreased range of motion, Lymphadenopathy (L), Tender lateral, Tender midline Respiratory/Chest: positive: Lungs Clear, Normal Breath Sounds. negative: Chest Tender, Respiratory Distress, Accessory Muscle Use, Crackles, Rales, Rhonchi, Stridor, Wheezing Cardiovascular: positive: Regular Rhythm, Regular Rate. negative: Murmur Gastrointestinal/Abdominal: positive: Normal Bowel Sounds, Flat, Soft, Pulsatile Mass. negative: Tender, Organomegaly, Guarding, Rebound Musculoskeletal: positive: Normal Inspection. 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 LUE exam normal, neurovascular intact.). negative: Normal Inspection, Normal Range of Motion, Pedal Edema, Swelling, Calf Tenderness Integumentary: positive: Normal Color, Dry, Warm, Bruising (R shoulder). negative: Jaundice Neurologic: positive: fur nailer II-XII NML intact, Fully Oriented, Alert, Normal Mood/Affect, Normal Response, Motor Strength 5/5, Finger to Nose (normal). negative: Facial Droop ED Treatment Course - LABORATORY CBC & Chemistry Diagram: 04/21/20 20:04 04/21/20 20:04 Medical Decision Making - Medical Decision Making 04/21/20 19:31 Patient has PMH AFIB on Xarelto, HTN, HLD, presents with syncopal episode yesterday and head and R shoulder injury. R shoulder has large hematoma overlying and limited AROM but limited PROM, neurovascular intact. Concerned for fx vs dislocation given limited ROM and tenderness. A/Ox4, no CHURCH or vision changes, no emergent concern for ICH but needs CT head and c-spine for evaluation of syncope and ICH given Xarelto use. Otherwise ddx syncope includes ACS vs. infection vs. dehydration, less likely PE. Ordering CBC/CMP/CP/ECG/CXR/UA/UC/Coags, getting CT head/c-spine and R shoulder XR. Covid-19 sent. Labs notable for: - WBC 14.9, afebrile - INR 1.31 - K 3.4, will replete - trop WNL - BNP WNL CXR unremarkable for infiltrate or edema. 04/21/20 21:21 Pending UA, ECG, and CT at this time. 04/21/20 21:48 R shoulder XR concerning for possible inferior dislocation given increased joint space widening and lower humeral head on Y view. Patient ROM re-evaluated, having worse pain with flexion and extension at shoulder but can internal and external rotate. Given 4mg IM morphine for pain after manipulation. 04/21/20 21:[address] Vivar, plan for CT chest, head, c-spine, then admit to tele. R shoulder may need reduction if dislocated on CT. Discharge - Discharge Information Problems reviewed: Yes Clinical Impression/Diagnosis: Syncope and collapse Right shoulder pain Qualifiers: Chronicity: acute Qualified Code(s): M25.511 - Pain in right shoulder Condition: Stable - Admission Yes - Follow up/Referral Referrals: Sulema Montgomery MD [Primary Care Provider] - - Patient Discharge Instructions - Post Discharge Activity
--- NOTE | 2020-04-21 19:33 | PDOC ---
Attending Attestation - Resident Resident Name: Jerry Austin - ED Attending Attestation I have performed the following: I have examined & evaluated the patient, The case was reviewed & discussed with the resident, I agree w/resident's findings & plan - HPI HPI: 04/21/20 21:24 see resident hpi - Physicial Exam PE: 04/21/20 21:24 see resident exam - Medical Decision Making 04/21/20 21:24 79-year-old female with multiple syncopal episodes yesterday, and additional fall today resulting in right shoulder injury currently anticoagulated Will evaluate for syncope, CT scans of the head and cervical spine, chest x-ray and shoulder x-ray We will plan for admission to medical service pending results Discharge - Discharge Information Problems reviewed: Yes Clinical Impression/Diagnosis: Syncope and collapse Right shoulder pain Qualifiers: Chronicity: acute Qualified Code(s): M25.511 - Pain in right shoulder Condition: Stable - Follow up/Referral Referrals: Sulema Montgomery MD [Primary Care Provider] - - Patient Discharge Instructions - Post Discharge Activity
[2020-04-21 20:38] LABS: BASO % 0.2 % (0-2.0); HEMATOCRIT 38.9 % (32.4-45.2); HEMOGLOBIN 12.7 GM/dL (10.7-15.3); LYMPH % 6.4 % (8-40); MCH 28.8 pg (25.7-33.7); MCHC 32.7 g/dl (32.0-36.0); MEAN CELL VOLUME 88.2 fl (80-96); MEAN PLT VOLUME 8.4 fl (7.5-11.1); MONO % 6.5 % (3.8-10.2); NEUT % 86.9 % (42.8-82.8); PLATELET COUNT 326 K/MM3 (134-434); RBC 4.41 M/mm3 (3.60-5.2); RDW 13.9 % (11.6-15.6); WHITE BLOOD COUNT 14.9 K/mm3 (4.0-10.0)
[2020-04-21 20:45] LABS: INR 1.31 (0.83-1.09); PROTHROMBIN TIME (PATIENT) 15.5 SEC (9.7-13.0)
[2020-04-21 20:47] LABS: ACTIVATED PTT 42.4 SECONDS (25.2-36.5)
[2020-04-21 21:03] LABS: BILIRUBIN,TOTAL 1.3 mg/dL (0.2-1); BLOOD UREA NITROGEN 15.5 mg/dL (7-18); CALCIUM 9.2 mg/dL (8.5-10.1); CREATININE 0.6 mg/dL (0.55-1.3); MAGNESIUM 1.9 mg/dL (1.8-2.4); N-TERMINAL BNP 433.7 pg/ml (5-450); POTASSIUM 3.4 mmol/L (3.5-5.1); TOT PROT 8.2 g/dl (6.4-8.2)
[2020-04-21] MEDS ORDERED: morphine CARPU-JECT 4 MG/1 ML DISP.SYRIN IVPUSH ONE (21:37)
[2020-04-21] MEDS ORDERED: morphine SULFATE 4 MG/ML VIAL ONE (21:39)
[2020-04-21] MEDS ORDERED: POTASSIUM CHLORIDE TABS 20 MEQ TABLET.ER (FP) PO ONE ×2 (22:00→23:25)
[2020-04-21] MEDS ORDERED: MORPHINE SULFATE 2 MG/ML VIAL SQ PRN (22:50)
--- NOTE | 2020-04-22 00:31 | PDOC ---
*Physical Exam - Vital Signs Last Vital Signs Temp Pulse Resp BP Pulse Ox 97.9 F 78 20 167/87 98 04/21/20 20:29 04/21/20 20:29 04/21/20 20:29 04/21/20 20:29 04/21/20 20:29 - Physical Exam 04/22/20 00:30 CT head, c-spine, RUE negative for acute pathology. Signed out to admitting team 04/22/20 04:42 ED Treatment Course - LABORATORY CBC & Chemistry Diagram: 04/21/20 20:04 04/21/20 20:04 - ADDITIONAL ORDERS Additional order review: Laboratory Results 04/21/20 04/21/20 04/21/20 20:04 20:04 20:04 PT with INR 15.50 H INR 1.31 H PTT (Actin FS) 42.4 H Sodium 139 Potassium 3.4 L Chloride 104 Carbon Dioxide 25 Anion Gap 10 BUN 15.5 Creatinine 0.6 Est GFR (CKD-EPI)AfAm 101.90 Est GFR (CKD-EPI)NonAf 87.92 Random Glucose 120 H Calcium 9.2 Magnesium 1.9 Total Bilirubin 1.3 H AST 17 ALT 18 Alkaline Phosphatase 76 Creatine Kinase 78 Troponin I 0.02 B-Natriuretic Peptide 433.7 Total Protein 8.2 Albumin 4.0 04/21/20 20:04 RBC 4.41 MCV 88.2 MCHC 32.7 RDW 13.9 MPV 8.4 Neutrophils % 86.9 H D Lymphocytes % 6.4 L D Monocytes % 6.5 Eosinophils % 0.0 D Basophils % 0.2 - RADIOLOGY Radiology Studies Ordered: Category Date Time Status UPPER EXTREMITY CT W/O CONTR [CT] Stat CT Scan 04/21/20 23:13 Taken Discharge - Discharge Information Problems reviewed: Yes Clinical Impression/Diagnosis: Syncope and collapse Right shoulder pain Qualifiers: Chronicity: acute Qualified Code(s): M25.511 - Pain in right shoulder Condition: Stable - Follow up/Referral - Patient Discharge Instructions - Post Discharge Activity
--- NOTE | 2020-04-22 02:06 | HP ---
CHIEF COMPLAINT: Fall, Near Syncope, R- Shoulder Pain PCP: Valentina HISTORY OF PRESENT ILLNESS: This is a 79 y/o female with a significant past medical history of Afib (on Xarelto), HTN, HLD, OA, Cellulitis (bilateral extremities). Who presents to the ED with her son for syncopal episodes, s/p fall, and right shoulder pain. Patient is Divehi speaking was premedicated with morphine very somnolent. Attempts made to use [facility] line for translating unsuccessful. Per ED records: Brought in by son for evaluation of her arm. Patient reports that she has been eating poorly because she has not been hungry. Yesterday fell several times while doing chores at home, last time was after dinner, was eating dinner at table when she lost consciousness and woke up on the floor, found by son who wanted to bring her to ED but patient refused, does not know if she hit her head but has R shoulder pain, has been worsening overnight and now she cannot move her right shoulder due to pain. Currently says she feels fine but her shoulder hurts. Patient denies tongue biting, loss of bowel/bladder continence, no sz history. Patient denies recent chest pain, SOB, palpitations, abdominal pain, diarrhea, coughing, urinary symptoms, CHURCH, vision changes. Patient denies pain in lower back or extremities, no pain in neck, gait normal. ER course was notable for: (1) Head CT- neg ICH (2) C-Spine CT- neg fx (3) WBC 14.9 Recent Travel: None PAST MEDICAL HISTORY: See HPI PAST SURGICAL HISTORY: Right Foot Abdominal Social History: Smoking: Never Alcohol: Unknown Drugs: Unknown Lives with son Allergies No Known Allergies Allergy (Verified 02/20/20 19:18) HOME MEDICATIONS: Home Medications Medication Instructions Recorded Atorvastatin Ca [Lipitor] 20 mg PO HS #30 tablet 06/21/16 Rivaroxaban [Xarelto] 1 tab PO HS 04/18/17 Alendronate Sodium [Binosto] 5 mg PO DAILY 01/04/19 Metoprolol Succinate [Toprol XL -] 25 mg PO BID 01/04/19 Cephalexin Monohydrate [Keflex -] 500 mg PO BID 5 Days #10 capsule 01/05/19 REVIEW OF SYSTEMS CONSTITUTIONAL: generalized weakness, malaise, loss of appetite Absent: fever, chills, diaphoresis, weight change HEENT: Absent: rhinorrhea, nasal congestion, throat pain, throat swelling, difficulty swallowing, mouth swelling, ear pain, eye pain, visual changes CARDIOVASCULAR: syncope Absent: chest pain, palpitations, irregular heart rate, lightheadedness, peripheral edema RESPIRATORY: Absent: cough, shortness of breath, dyspnea with exertion, orthopnea, wheezing, stridor, hemoptysis GASTROINTESTINAL: Absent: abdominal pain, abdominal distension, nausea, vomiting, diarrhea, constipation, melena, hematochezia GENITOURINARY: Absent: dysuria, frequency, urgency, hesitancy, hematuria, flank pain, genital pain MUSCULOSKELETAL: arthralgia, right shoulder pain Absent: myalgia, joint swelling, back pain, neck pain SKIN: Absent: rash, itching, pallor HEMATOLOGIC/IMMUNOLOGIC: Absent: easy bleeding, easy bruising, lymphadenopathy, frequent infections ENDOCRINE: Absent: unexplained weight gain, unexplained weight loss, heat intolerance, cold intolerance NEUROLOGIC: unsteady gait, Absent: headache, focal weakness or paresthesias, dizziness, seizure, mental status changes, bladder or bowel incontinence PSYCHIATRIC: Absent: anxiety, depression, suicidal or homicidal ideation, hallucinations. PHYSICAL EXAMINATION Vital Signs - 24 hr 04/21/20 04/21/20 18:20 20:29 Temperature 98.3 F 97.9 F Pulse Rate 77 Pulse Rate [ 78 Right Apical] Respiratory 19 20 Rate Blood Pressure 173/70 H Blood Pressure 167/87 [Left Arm] O2 Sat by Pulse 98 98 Oximetry (%) GENERAL: Asleep, Somnolent, in no acute distress. HEAD: Normal with no signs of trauma. EYES: Pupils equal, round and reactive to light, extraocular movements intact, sclera anicteric, conjunctiva clear. No lid lag. EARS, NOSE, THROAT: Dry mucous membranes. Ears normal, nares patent, oropharynx clear without exudates. NECK: Normal range of motion, supple without lymphadenopathy, JVD, or masses. LUNGS: Breath sounds equal, clear to auscultation bilaterally. No wheezes, and no crackles. No accessory muscle use. HEART: Regular rate and rhythm, normal S1 and S2 without murmur, rub or gallop. ABDOMEN: Soft, nontender, not distended, normoactive bowel sounds, no guarding, no rebound, no masses. No hepatomegaly or splenomegaly. MUSCULOSKELETAL: LROM of RUE with tenderness to right anterior aspect of shoulder. Normal range of motion at LUE, LLE, RLE joints. No bony deformities. No CVA tenderness. UPPER EXTREMITIES: 2+ pulses, warm, well-perfused. No cyanosis. No clubbing. No peripheral edema. LOWER EXTREMITIES: 2+ pulses, warm, well-perfused. No calf tenderness. No peripheral edema. NEUROLOGICAL: Cranial nerves II-XII intact. Normal speech. Gait not observed. PSYCHIATRIC: Somnolent (post medication) SKIN: Ecchymotic bruising to R- shoulder. Warm, dry, normal turgor, no rashes or lesions noted, normal capillary refill. Laboratory Results - last 24 hr 04/21/20 04/21/20 04/21/20 20:04 20:04 20:04 WBC 14.9 H RBC 4.41 Hgb 12.7 Hct 38.9 MCV 88.2 MCH 28.8 MCHC 32.7 RDW 13.9 Plt Count 326 MPV 8.4 Absolute Neuts (auto) 13.0 H Neutrophils % 86.9 H D Lymphocytes % 6.4 L D Monocytes % 6.5 Eosinophils % 0.0 D Basophils % 0.2 Nucleated RBC % 0 PT with INR 15.50 H INR 1.31 H PTT (Actin FS) 42.4 H Sodium 139 Potassium 3.4 L Chloride 104 Carbon Dioxide 25 Anion Gap 10 BUN 15.5 Creatinine 0.6 Est GFR (CKD-EPI)AfAm 101.90 Est GFR (CKD-EPI)NonAf 87.92 Random Glucose 120 H Calcium 9.2 Magnesium 1.9 Total Bilirubin 1.3 H AST 17 ALT 18 Alkaline Phosphatase 76 Creatine Kinase Troponin I B-Natriuretic Peptide 433.7 Total Protein 8.2 Albumin 4.0 04/21/20 20:04 WBC RBC Hgb Hct MCV MCH MCHC RDW Plt Count MPV Absolute Neuts (auto) Neutrophils % Lymphocytes % Monocytes % Eosinophils % Basophils % Nucleated RBC % PT with INR INR PTT (Actin FS) Sodium Potassium Chloride Carbon Dioxide Anion Gap BUN Creatinine Est GFR (CKD-EPI)AfAm Est GFR (CKD-EPI)NonAf Random Glucose Calcium Magnesium Total Bilirubin AST ALT Alkaline Phosphatase Creatine Kinase 78 Troponin I 0.02 B-Natriuretic Peptide Total Protein Albumin ASSESSMENT/PLAN: This is a 79 y/o female with a PMHx of Afib (on Xarelto), HTN, HLD, DM, Cellulitis (b/l LE). Placed on Telemetry Observation for Syncope, Unsteady Gait s/p Fall, Right Shoulder Pain for further evaluation of their emergent condition. Plan: See Problem List FEN PO Fluids as tolerated Replete lytes prn Low Na, Diabetic Diet DVT ppx OOB SCDs Continue Xarelto Dispo: Observation Family Medical History Family History: Unable to Obtain Problem List - Problem (1) Syncope and collapse Assessment/Plan: r/o Arrhythmia vs Dehydration Continue cardiac monitoring Serial Enzymes Appreciate Cardiology consult Carotid Doppler Neurochecks Orthostatics Monitor CBC, CMP Code(s): R55 - SYNCOPE AND COLLAPSE (2) Fall at home Assessment/Plan: r/o Arrhythmia vs Dehydration Head CT- neg ICH C- Spine CT- neg Fx Xray R- Shoulder- neg fx CT of R- Upper Extremity- neg fx or dislocation. +calcific tendinitis Chest CT- no acute pathology Chest Xray image reviewed no infiltrate or effusion appreciated Fall Precautions Monitor vitals Consider Case Management for STR Code(s): W19.XXXA - UNSPECIFIED FALL, INITIAL ENCOUNTER; Y92.009 - UNSP PLACE IN UNSP NON-INSTITUT (PRIVATE) RESIDENCE PLACE (3) Right shoulder pain Assessment/Plan: s/p fall R- Shoulder Xray- neg fx Right Upper Extremity CT- neg fx, +calcific tendinitis Ice pack Tylenol prn PT eval Neurovascular checks Consider Ortho consult Code(s): M25.511 - PAIN IN RIGHT SHOULDER Qualifiers: Chronicity: acute Qualified Code(s): M25.511 - Pain in right shoulder (4) Leukocytosis Assessment/Plan: Likely due to inflammation vs infection vs malignancy UA and Urine culture-pending Blood culture-pending Chest Xray image- no infiltrate or effusions Chest CT- no acute pathology Repeat CBC in am Monitor vitals Will watch and wait for now, no ABX warranted at this point Code(s): D72.829 - ELEVATED WHITE BLOOD CELL COUNT, UNSPECIFIED (5) GERD (gastroesophageal reflux disease) Assessment/Plan: stable Continue PPI Code(s): K21.9 - GASTRO-ESOPHAGEAL REFLUX DISEASE WITHOUT ESOPHAGITIS Qualifiers: Esophagitis presence: without esophagitis Qualified Code(s): K21.9 - Gastro-esophageal reflux disease without esophagitis (6) HLD (hyperlipidemia) Assessment/Plan: stable Continue Lipitor Monitor LFTs Code(s): E78.5 - HYPERLIPIDEMIA, UNSPECIFIED (7) HTN (hypertension) Assessment/Plan: sub optimal Monitor BP Continue home medication when verified Monitor renal function Code(s): I10 - ESSENTIAL (PRIMARY) HYPERTENSION (8) Paroxysmal atrial fibrillation Assessment/Plan: stable EKG Continue Xarelto, need to verify other home med with pt's son in am [id number] Code(s): I48.0 - PAROXYSMAL ATRIAL FIBRILLATION (9) Encounter for screening laboratory testing for COVID-19 virus Assessment/Plan: Low Risk COVID PCR-pending Isolation Precautions Code(s): Z11.59 - ENCOUNTER FOR SCREENING FOR OTHER VIRAL DISEASES Visit type - Medication Review Med list reviewed for High Risk Meds patients 65 and older: No (patient was not able to provide med list- glue jointer feeder used) - Emergency Visit Emergency Visit: Yes ED Registration Date: 04/21/20 Care time: The patient presented to the Emergency Department on the above date and was hospitalized for further evaluation of their emergent condition. - New Patient This patient is new to me today: Yes Date on this admission: 04/22/20 - Critical Care Critical Care patient: No
[2020-04-22] MEDS ORDERED: SODIUM CHLORIDE 1,000 ML IV SCH (03:00)
[2020-04-22] MEDS ORDERED: ACETAMINOPHEN 325 MG TABLET (FP) PO PRN (05:07)
[2020-04-22 06:03] LABS: BASO % 0.3 % (0-2.0); HEMATOCRIT 35.4 % (32.4-45.2); HEMOGLOBIN 11.5 GM/dL (10.7-15.3); LYMPH % 8.6 % (8-40); MCH 28.5 pg (25.7-33.7); MCHC 32.6 g/dl (32.0-36.0); MEAN CELL VOLUME 87.3 fl (80-96); MEAN PLT VOLUME 8.1 fl (7.5-11.1); MONO % 11.3 % (3.8-10.2); NEUT % 79.8 % (42.8-82.8); PLATELET COUNT 291 K/MM3 (134-434); RBC 4.06 M/mm3 (3.60-5.2); RDW 13.6 % (11.6-15.6); WHITE BLOOD COUNT 12.3 K/mm3 (4.0-10.0)
[2020-04-22 06:30] LABS: ALBUMIN 3.1 g/dl (3.4-5.0); ALK PHOS 66 U/L (45-117); ANION GAP 7 MMOL/L (8-16); BILIRUBIN,TOTAL 1.3 mg/dL (0.2-1); BLOOD UREA NITROGEN 11.6 mg/dL (7-18); CALCIUM 8.6 mg/dL (8.5-10.1); CHLORIDE 107 mmol/L (98-107); CHOLESTEROL 191 mg/dL (50-200); CO2 24 mmol/L (21-32); CREATININE 0.5 mg/dL (0.55-1.3); GLUCOSE,RANDOM 117 mg/dL (74-106); HDL CHOLESTEROL 80 mg/dL (40-60); LDL CHOLESTEROL (ONLY SJRH) 89 mg/dL (5-100); MAGNESIUM 1.9 mg/dL (1.8-2.4); POTASSIUM 4.2 mmol/L (3.5-5.1); SGOT/AST 12 U/L (15-37); SGPT/ALT 14 U/L (13-61); SODIUM 138 mmol/L (136-145); TOT PROT 6.7 g/dl (6.4-8.2); TRIGLYCERIDES 48 mg/dL (0-150)
--- NOTE | 2020-04-22 11:30 | HOSP ---
Subjective - Review of Symptoms Events since last encounter: This is a 79 y/o female with a significant past medical history of Afib (on Xarelto), HTN, HLD, OA, Cellulitis (bilateral extremities). Who presents to the ED with her son for syncopal episodes, s/p fall, and right shoulder pain. General: Yes: Malaise Musculoskeletal: Yes: Muscle Pain (shouklder pain) Neurological: Yes: Weakness, Incoordination, Confusion Physical Examination Vital Signs: Vital Signs Temperature 98.1 F 04/22/20 09:51 Pulse Rate 64 04/22/20 09:51 Respiratory Rate 14 04/22/20 09:42 Blood Pressure 116/57 L 04/22/20 09:51 O2 Sat by Pulse Oximetry (%) 98 04/22/20 09:51 Constitutional: Yes: Well Nourished, No Distress, Calm Eyes: Yes: WNL, Conjunctiva Clear, EOM Intact HENT: Yes: WNL, Atraumatic, Normocephalic Neck: Yes: WNL, Supple, Trachea Midline Cardiovascular: Yes: WNL, Regular Rate and Rhythm Respiratory: Yes: WNL, Regular, CTA Bilaterally Gastrointestinal: Yes: WNL, Normal Bowel Sounds ...Rectal Exam: Yes: Deferred Renal/: Yes: WNL Breast(s): Yes: WNL Musculoskeletal: Yes: Muscle Pain (LROM of RUE with tenderness to right anterior aspect of shoulder.) Extremities: Yes: Other (Ecchymotic bruising to R- shoulder.) Edema: No Peripheral Pulses WNL: Yes Peripheral Pulses: Left Radial: 2+, Right Radial: 2+, Left Doralis Pedis: 2+, Right Dorsalis Pedis: 2+, Left Femoral: 2+, Right Femoral: 2+ Integumentary: Yes: Bruising (Ecchymotic bruising to R- shoulder.) Neurological: Yes: Alert, Unsteady Gait ...Motor Strength: WNL Psychiatric: Yes: WNL Labs: CBC, BMP 04/22/20 05:44 04/22/20 05:44 Duplex LE: neg for DVT Hospitalist Encounter Assessment: This is a 79 y/o female with a PMHx of Afib (on Xarelto), HTN, HLD, DM, Cellulitis (b/l LE). Placed on Telemetry Observation for Syncope, Unsteady Gait s/p Fall, Right Shoulder Pain #SYNCOPE with collapse -pt has had abrupt LOC on several occasions over past several years -previous extensive cardiac w/u all have been unremarkable -had planned outpt event monitor and was sent to pt house but she decided not to wear it -seen by cardiology -will monitoor on tele for 24hr and if uneventful can dc tomorrow #PAF -SR on tele monitor -c/w xarelto -c/w toprol #HTN -c/w home meds #HLD -c/w statin #FEN -no additonal IVF -cardiac diet -heparin sq Monitor on tele for 24H full code discharge planning
--- NOTE | 2020-04-22 12:36 | EKG ---
Test Reason : Blood Pressure : / mmHG Vent. Rate : 064 BPM Atrial Rate : 064 BPM P-R Int : 158 ms QRS Dur : 086 ms QT Int : 414 ms P-R-T Axes : 066 031 016 degrees QTc Int : 427 ms NORMAL SINUS RHYTHM T WAVE ABNORMALITY, CONSIDER ANTERIOR ISCHEMIA ABNORMAL ECG WHEN COMPARED WITH ECG OF 21-DEC-2017 12:27, T WAVE INVERSION MORE EVIDENT IN ANTERIOR LEADS Confirmed by SADE ARAIZA, LARS ([id number]) on 04/22/2020 12:35:48 PM Referred By: Confirmed By:LARS STUART MD
--- NOTE | 2020-04-22 15:53 | CON.CARD ---
Cardiology Consult (text) - Consultation Consultation Note: cc: syncope hpi: 79 f hx gerd, pafib, htn, hld, here with syncope. Was eating at dinner table yesterday and felt ok but the next thing she remembered was waking up on floor. No prodrome sxs. [place] ok after except for pain in shoulder where she fell. No cp sob palps dizzy pnd orthopnea le edema. Sees me for cardio. pmh: per hpi psh: dental surgery social: no tob fam: no premature cad, scd ros: per hpi; all others nl meds: Home Medications Medication Instructions Recorded Rivaroxaban [Xarelto] 1 tab PO HS 04/18/17 Metoprolol Succinate [Toprol XL -] 25 mg PO BID 01/04/19 Vital Signs Period Temp Pulse Resp BP Sys/Neri Pulse Ox Last 24 Hr 97.6 F-98.3 F 64-78 14-20 116-173/57-87 96-99 nad no jvd rrr s1s2 no mrg cta bl nl eff aao3 no le e/c/c abd nt nd pos bs no jaundice diaphoresis pos dp pt no carotid bruits Laboratory Last Values WBC 12.3 K/mm3 (4.0-10.0) H 04/22/20 05:44 RBC 4.06 M/mm3 (3.60-5.2) 04/22/20 05:44 Hgb 11.5 GM/dL (10.7-15.3) 04/22/20 05:44 Hct 35.4 % (32.4-45.2) 04/22/20 05:44 MCV 87.3 fl (80-96) 04/22/20 05:44 MCH 28.5 pg (25.7-33.7) 04/22/20 05:44 MCHC 32.6 g/dl (32.0-36.0) 04/22/20 05:44 RDW 13.6 % (11.6-15.6) 04/22/20 05:44 Plt Count 291 K/MM3 (134-434) 04/22/20 05:44 MPV 8.1 fl (7.5-11.1) 04/22/20 05:44 Absolute Neuts (auto) 9.8 K/mm3 (1.5-8.0) H 04/22/20 05:44 Neutrophils % 79.8 % (42.8-82.8) 04/22/20 05:44 Lymphocytes % 8.6 % (8-40) D 04/22/20 05:44 Monocytes % 11.3 % (3.8-10.2) H 04/22/20 05:44 Eosinophils % 0.0 % (0-4.5) 04/22/20 05:44 Basophils % 0.3 % (0-2.0) 04/22/20 05:44 Nucleated RBC % 0 % (0-0) 04/22/20 05:44 PT with INR 15.50 SEC (9.7-13.0) H 04/21/20 20:04 INR 1.31 (0.83-1.09) H 04/21/20 20:04 PTT (Actin FS) 42.4 SECONDS (25.2-36.5) H 04/21/20 20:04 Sodium 138 mmol/L (136-145) 04/22/20 05:44 Potassium 4.2 mmol/L (3.5-5.1) 04/22/20 05:44 Chloride 107 mmol/L (98-107) 04/22/20 05:44 Carbon Dioxide 24 mmol/L (21-32) 04/22/20 05:44 Anion Gap 7 MMOL/L (8-16) L 04/22/20 05:44 BUN 11.6 mg/dL (7-18) 04/22/20 05:44 Creatinine 0.5 mg/dL (0.55-1.3) L 04/22/20 05:44 Est GFR (CKD-EPI)AfAm 108.20 04/22/20 05:44 Est GFR (CKD-EPI)NonAf 93.36 04/22/20 05:44 Random Glucose 117 mg/dL (74-106) H 04/22/20 05:44 Calcium 8.6 mg/dL (8.5-10.1) 04/22/20 05:44 Magnesium 1.9 mg/dL (1.8-2.4) 04/22/20 05:44 Total Bilirubin 1.3 mg/dL (0.2-1) H 04/22/20 05:44 AST 12 U/L (15-37) L 04/22/20 05:44 ALT 14 U/L (13-61) 04/22/20 05:44 Alkaline Phosphatase 66 U/L (45-117) 04/22/20 05:44 Creatine Kinase 78 U/L (26-192) 04/21/20 20:04 Troponin I < 0.02 ng/ml (0.00-0.05) 04/22/20 05:44 B-Natriuretic Peptide 433.7 pg/ml (5-450) 04/21/20 20:04 Total Protein 6.7 g/dl (6.4-8.2) 04/22/20 05:44 Albumin 3.1 g/dl (3.4-5.0) L 04/22/20 05:44 Triglycerides 48 mg/dL (0-150) 04/22/20 05:44 Cholesterol 191 mg/dL (50-200) 04/22/20 05:44 Total LDL Cholesterol 89 mg/dL (5-100) 04/22/20 05:44 HDL Cholesterol 80 mg/dL (40-60) H 04/22/20 05:44 ecg: sr, nl intervals no ischemic changes cxr: clear carotids 03/2020: no sig stenosis echo 08/2017: nl lv/rv, mild pr mibi 03/2016: no ischemia a/p: 79 f hx gerd, pafib, htn, hld, here with syncope. syncope: -pt has had abrupt LOC on several occasions over past several years -extensive cardiac w/u including ecgs, tele, stress test, echos, carotids, orthostatics, all have been unremarkable -had planned outpt event monitor and was sent to pt house but she decided not to wear it -currently no signs chf, acs, uncontrolled arrhythmia. ecg and carotids unremarkable. -would check ortho vitals and monitor on tele 24 hrs, if benign plan for dc tomorrow from cardiac pov with outpt f/u and will attempt jail monitoring again pafib: -in sr here -cont xarelto -cont toprol htn: -cont home meds hld: -cont statin
[2020-04-22 16:20] VITALS: TEMP 99.2
[2020-04-22] MEDS ORDERED: ACETAMINOPHEN 325 MG TABLET (FP) ONE (17:00)
[2020-04-22 19:57] VITALS: BP 101/54; PULSE 76
--- NOTE | 2020-04-23 02:37 | PN ---
Progress Note (short form) - Note Progress Note: Episodic Note: 04/23/2020@2:27am Called by nurse patient arrived from ER to floor and she is extremely agitated, combative and screaming in the hallway mainly in Kiswahili. Patient was seen and examined in the hallway. She was admitted for a syncopy evaluation. On my evaluations she is extremely angry, agitated and yelling in Kiswahili nonstop. She will not listen to go to her room or to sit down. Condition 10 was called earlier and security and nursing staff in attendance. Son was called and came to see his mother. She continued to be very angry and agitated and she did not listen at all. She refused medications to be given to calm her down. She wanted to go home as she did not feel safe staying and son took her home AGAINST MEDICAL ADVICE. Son was informed to go see primary care doctor in the morning . He is verbalizing all understanding of instruction as given. IV access site removed by nurse prior to leaving. Visit type - Emergency Visit Emergency Visit: Yes ED Registration Date: 04/22/20 Care time: The patient presented to the Emergency Department on the above date and was hospitalized for further evaluation of their emergent condition. - New Patient This patient is new to me today: Yes Date on this admission: 04/23/20 - Critical Care Critical Care patient: No - Discharge Referral Referred to [facility] No - Medication Review Med list reviewed for High Risk Meds patients 65 and older: No
== END 2020-04-23 02:05 | disposition left against medical advice (07) ==
LOC: JER 18:17 → INTOOBSV 19:37 → JERBED 19:37 → UNDOADMOB 19:37 → JERBED 04-22 02:06 → J4S 04-23 01:26
PROVIDERS: ADMIT Internal Medicine; ATTEND Nurse Practitioner Acute Care
PROC: 3E033NZ Introduction of Analgesics, Hypnotics, Sedatives into Peripheral Vein, Percutaneous Approach (ICD-10-PCS; principal; 2020-04-22)
DX: M25.511 Pain in right shoulder (principal); W18.39XA Other fall on same level, initial encounter; I48.0 Paroxysmal atrial fibrillation; Y93.89 Activity, other specified; Y92.89 Other specified places as the place of occurrence of the external cause; R55 Syncope and collapse; R26.81 Unsteadiness on feet; M79.10 Myalgia, unspecified site; R58 Hemorrhage, not elsewhere classified; Z79.01 Long term (current) use of anticoagulants; I10 Essential (primary) hypertension; E78.5 Hyperlipidemia, unspecified; Z29.9 Encounter for prophylactic measures, unspecified
CPT/HCPCS: 36415; 70450-TC; 71045-TC-FY; 71250-TC; 72125-TC; 73030-TC-RT-FY; 73200-TC-RT; 80053; 80061; 82550; 83721; 83735; 83880; 84484; 85025; 85610; 85730; 87040; 93005; 93010; 93880-TC; 96374; 99285-25; G0378; U0003

== ENCOUNTER 2021-02-01 05:06 | Emergency (ER) | payer OTHER ==
[2021-02-01 05:27] VITALS: TEMP 98; BMI 21.9
[2021-02-01] MEDS ORDERED: ACETAMINOPHEN 325 MG TABLET (FP) PO ONE (05:59)
[2021-02-01] MEDS ORDERED: ACETAMINOPHEN 325 MG TABLET (FP) ONE (06:16)
[2021-02-01] MEDS ORDERED: ACETAMINOPHEN 650 MG/20.3 ML ORAL SOLUTION (CUPS) ONE (06:22)
[2021-02-01] MEDS ORDERED: ACETAMINOPHEN 160 MG/5 ML *Children Solution PO ONE (06:23)
[2021-02-01] MEDS ORDERED: ACETAMINOPHEN 650 MG/20.3 ML ORAL SOLUTION (CUPS) PO ONE (06:31)
[2021-02-01 12:13] VITALS: BP 145/73; PULSE 68
== END 2021-02-01 12:14 | disposition home or self-care (01) ==
LOC: JER 05:06
DX: R51.9 Headache, unspecified (principal); M25.559 Pain in unspecified hip
CPT/HCPCS: 70450-TC; 72125-TC; 73030-TC-LT-FY; 73060-TC-LT-FY; 73070-TC-LT-FY; 73523-TC-FY; 99285-25; C9803; U0003; U0005

== ENCOUNTER 2021-06-10 16:36 | Emergency (ER) | payer OTHER ==
[2021-06-10 17:03] VITALS: BP 160/80; PULSE 62; TEMP 98.4; BMI 21.5
[2021-06-10] MEDS ORDERED: ACETAMINOPHEN 325 MG TABLET (FP) PO ONE (19:59)
[2021-06-10] MEDS ORDERED: ACETAMINOPHEN 325 MG TABLET (FP) ONE (20:34)
[2021-06-10] MEDS ORDERED: ACETAMINOPHEN 650 MG/20.3 ML ORAL SOLUTION (CUPS) ONE (20:35)
[2021-06-10 20:43] LABS: EPI CELLS 9 /uL (0-25.1); HYALINE CASTS 0 /uL (0-3.1); PH,URINE 7.5 (5.0-8.0); URINE APPEARANCE CLEAR; URINE BACTERIA 88 /uL (0-1359); URINE BILIRUBIN NEGATIVE (NEGATIVE); URINE COLOR YELLOW; URINE GLUCOSE (UA) NEGATIVE (NEGATIVE); URINE KETONE NEGATIVE (NEGATIVE); URINE LEUK ESTERASE 1+ (NEGATIVE); URINE NITRITE NEGATIVE (NEGATIVE); URINE PROTEIN NEGATIVE (NEGATIVE); URINE RBC 68 /uL (0-23.9); URINE WBC 20 /uL (0-25.8)
[2021-06-10 20:50] LABS: BASO % 0.4 % (0-2.0); EOS % 1.5 % (0-4.5); HEMATOCRIT 33.7 % (32.4-45.2); HEMOGLOBIN 11.1 GM/dL (10.7-15.3); LYMPH % 24.7 % (8-40); MCHC 33.1 g/dl (32.0-36.0); MEAN CELL VOLUME 84.7 fl (80-96); MEAN PLT VOLUME 8.1 fl (7.5-11.1); MONO % 7.6 % (3.8-10.2); NEUT % 65.8 % (42.8-82.8); PLATELET COUNT 293 10^3/uL (134-434); RBC 3.98 M/mm3 (3.60-5.2); RDW 13.9 % (11.6-15.6); WHITE BLOOD COUNT 8.2 K/mm3 (4.0-10.0)
[2021-06-10 20:57] LABS: CHLORIDE 109 mmol/L (98-107); SODIUM 141 mmol/L (136-145)
[2021-06-10 21:01] LABS: ALBUMIN 2.9 g/dl (3.4-5.0); ANION GAP 8 MMOL/L (8-16); BLOOD UREA NITROGEN 14.8 mg/dL (7-18); CO2 24 mmol/L (21-32); GLUCOSE,RANDOM 83 mg/dL (74-106)
[2021-06-10 21:04] LABS: CREATININE 0.5 mg/dL (0.55-1.3); SGOT/AST 19 U/L (15-37); SGPT/ALT 17 U/L (13-61)
[2021-06-10 21:05] LABS: BILIRUBIN,TOTAL 0.4 mg/dL (0.2-1)
[2021-06-10 21:07] LABS: ALK PHOS 71 U/L (45-117)
== END 2021-06-10 23:34 | disposition home or self-care (01) ==
LOC: JER 16:36
DX: M25.531 Pain in right wrist (principal); W19.XXXA Unspecified fall, initial encounter
CPT/HCPCS: 36415; 70450-TC; 71046-TC-FY; 72125-TC; 73110-TC-RT-FY; 73130-TC-RT-FY; 73564-TC-LT-FY; 80053; 81003; 82550; 84484; 85025; 87086; 93005; 93010; 99285-25; C9803; U0003; U0005

== ENCOUNTER 2021-08-14 07:32 | Observation (INO) | payer OTHER ==
[2021-08-14 07:53] VITALS: BMI 21.9
[2021-08-14 09:29] LABS: BASO % 0.4 % (0-2.0); EOS % 0.4 % (0-4.5); HEMATOCRIT 37.6 % (32.4-45.2); HEMOGLOBIN 12.5 GM/dL (10.7-15.3); LYMPH % 14.9 % (8-40); MCH 28.3 pg (25.7-33.7); MCHC 33.2 g/dl (32.0-36.0); MEAN CELL VOLUME 85.3 fl (80-96); MEAN PLT VOLUME 7.4 fl (7.5-11.1); NEUT % 76.3 % (42.8-82.8); PLATELET COUNT 333 10^3/uL (134-434); RBC 4.42 M/mm3 (3.60-5.2); RDW 14.3 % (11.6-15.6); WHITE BLOOD COUNT 8.6 K/mm3 (4.0-10.0)
[2021-08-14 09:47] LABS: BLOOD UREA NITROGEN 14.7 mg/dL (7-18); CALCIUM 9.6 mg/dL (8.5-10.1); MAGNESIUM 2.5 mg/dL (1.8-2.4)
[2021-08-14 09:50] LABS: CREATININE 0.6 mg/dL (0.55-1.3)
[2021-08-14 09:52] LABS: BILIRUBIN,TOTAL 0.7 mg/dL (0.2-1); TOT PROT 8.5 g/dl (6.4-8.2)
[2021-08-14] MEDS ORDERED: ACETAMINOPHEN 325 MG TABLET (FP) PO ONE (10:30)
[2021-08-14] MEDS ORDERED: ACETAMINOPHEN 325 MG TABLET (FP) ONE (10:35)
[2021-08-14 10:42] LABS: EPI CELLS 1 /uL (0-25.1); HYALINE CASTS 0 /uL (0-3.1); PH,URINE 7.5 (5.0-8.0); URINE APPEARANCE CLEAR; URINE BACTERIA 4 /uL (0-1359); URINE BILIRUBIN NEGATIVE (NEGATIVE); URINE COLOR YELLOW; URINE GLUCOSE (UA) NEGATIVE (NEGATIVE); URINE KETONE NEGATIVE (NEGATIVE); URINE LEUK ESTERASE NEGATIVE (NEGATIVE); URINE NITRITE NEGATIVE (NEGATIVE); URINE PROTEIN NEGATIVE (NEGATIVE); URINE RBC 22 /uL (0-23.9); URINE UROBILINOGEN 0.2 mg/dL (0.2-1.0); URINE WBC 0 /uL (0-25.8)
[2021-08-14 13:04] VITALS: BP 133/62; PULSE 60; TEMP 97.8
[2021-08-14] MEDS ORDERED: ACETAMINOPHEN 325 MG TABLET (FP) PO PRN (20:17)
[2021-08-14] MEDS ORDERED: ATORVASTATIN CA 20 MG TABLET (FP) PO SCH (22:00)
[2021-08-14] MEDS ORDERED: metoPROLOL SUCCINATE 25 MG TAB.SR.24H (FP) PO SCH (22:00)
[2021-08-15] MEDS ORDERED: ENOXAPARIN NA (PORCINE) 40 MG/0.4 ML DISP.SYRIN SQ SCH (10:00)
== END 2021-08-14 17:20 | disposition left against medical advice (07) ==
LOC: JER 07:32 → JERBED 13:40
PROVIDERS: ADMIT Family Medicine; ATTEND Family Medicine
DX: S09.90XA Unspecified injury of head, initial encounter (principal); W19.XXXA Unspecified fall, initial encounter; Y93.9 Activity, unspecified; Y92.9 Unspecified place or not applicable; I10 Essential (primary) hypertension; I48.91 Unspecified atrial fibrillation; E78.5 Hyperlipidemia, unspecified; G30.9 Alzheimer's disease, unspecified; F02.80 Dementia in other diseases classified elsewhere, unspecified severity, without behavioral disturbance, psychotic disturbance, mood disturbance, and anxiety; F32.A Depression, unspecified; Z79.01 Long term (current) use of anticoagulants
CPT/HCPCS: 36415; 70450-TC; 71045-TC-FY; 72125-TC; 72170-TC-FY; 80053; 81003; 82550; 83735; 84484; 85025; 93005; 93010; 93971-TC; 99285-25; C9803; G0378; U0003; U0005

== ENCOUNTER 2022-12-01 16:15 | Observation (INO) | payer OTHER ==
[2022-12-01 17:32] LABS: BASO % 0.4 % (0-2.0); HEMATOCRIT 35.6 % (32.4-45.2); HEMOGLOBIN 11.9 GM/dL (10.7-15.3); LYMPH % 11.8 % (8-40); MCHC 33.5 g/dl (32.0-36.0); MEAN CELL VOLUME 86.6 fl (80-96); MEAN PLT VOLUME 8.2 fl (7.5-11.1); MONO % 6.5 % (3.8-10.2); NEUT % 80.3 % (42.8-82.8); PLATELET COUNT 283 10^3/uL (134-434); RBC 4.11 M/mm3 (3.60-5.2); RDW 13.6 % (11.6-15.6); WHITE BLOOD COUNT 7.9 K/mm3 (4.0-10.0)
[2022-12-01 18:00] LABS: ALBUMIN 3.6 g/dl (3.4-5.0); BLOOD UREA NITROGEN 21.4 mg/dL (7-18); CALCIUM 9.6 mg/dL (8.5-10.1); MAGNESIUM 2.2 mg/dL (1.8-2.4)
[2022-12-01 18:03] LABS: CREATININE 0.6 mg/dL (0.55-1.3)
[2022-12-01 18:05] LABS: BILIRUBIN,TOTAL 0.6 mg/dL (0.2-1); TOT PROT 7.2 g/dl (6.4-8.2)
[2022-12-01] MEDS ORDERED: SODIUM CHLORIDE 1,000 ML IV STA (18:41)
[2022-12-01 22:10] LABS: PH,URINE 8.5 (5.0-8.0); URINE APPEARANCE TURBID; URINE BILIRUBIN NEGATIVE (NEGATIVE); URINE COLOR YELLOW; URINE GLUCOSE (UA) NEGATIVE (NEGATIVE); URINE KETONE NEGATIVE (NEGATIVE); URINE LEUK ESTERASE NEGATIVE (NEGATIVE); URINE NITRITE NEGATIVE (NEGATIVE); URINE PROTEIN NEGATIVE (NEGATIVE); URINE UROBILINOGEN 0.2 mg/dL (0.2-1.0)
[2022-12-02] MEDS: MELATONIN 5 MG TABLETS PO SCH ×2 (02:17→22:48)
[2022-12-02] MEDS ORDERED: HALOPERIDOL LACTATE 5 MG/ML IM ONE (03:45)
[2022-12-02 07:16] LABS: BASO % 0.5 % (0-2.0); EOS % 0.2 % (0-4.5); HEMOGLOBIN 13.2 GM/dL (10.7-15.3); MCH 29.3 pg (25.7-33.7); MCHC 33.9 g/dl (32.0-36.0); MEAN CELL VOLUME 86.3 fl (80-96); MEAN PLT VOLUME 8.4 fl (7.5-11.1); MONO % 8.5 % (3.8-10.2); NEUT % 81.8 % (42.8-82.8); PLATELET COUNT 304 10^3/uL (134-434); RBC 4.52 M/mm3 (3.60-5.2); RDW 13.4 % (11.6-15.6); WHITE BLOOD COUNT 13.2 K/mm3 (4.0-10.0)
[2022-12-02 07:38] LABS: CHOLESTEROL 221 mg/dL (50-200)
[2022-12-02 07:40] LABS: LDL CHOLESTEROL (ONLY SJRH) 97 mg/dL (5-100)
[2022-12-02 07:41] LABS: HDL CHOLESTEROL 117 mg/dL (40-60)
[2022-12-02 07:43] LABS: BLOOD UREA NITROGEN 14.7 mg/dL (7-18)
[2022-12-02 07:44] LABS: ALBUMIN 3.9 g/dl (3.4-5.0)
[2022-12-02 07:46] LABS: CREATININE 0.7 mg/dL (0.55-1.3); PHOSPHOROUS 2.5 mg/dL (2.5-4.9)
[2022-12-02 07:48] LABS: BILIRUBIN,TOTAL 0.9 mg/dL (0.2-1); TOT PROT 7.9 g/dl (6.4-8.2)
[2022-12-02] MEDS: amLODIPine BESYLATE 5 MG TABLET (FP) PO SCH (11:16)
[2022-12-02] MEDS: LISINOPRIL 5 MG TABLET PO SCH (11:17)
[2022-12-02] MEDS: RIVAROXABAN 15 MG TABLET PO SCH (18:09)
[2022-12-02] MEDS: ATORVASTATIN CA 20 MG TABLET (FP) PO SCH (22:48)
[2022-12-03] MEDS ORDERED: HALOPERIDOL LACTATE 5 MG/ML IM ONE ×2 (00:30→00:33)
[2022-12-03] MEDS ORDERED: diphenhydrAMINE HCL 25 MG CAPSULE (FP) PO ONE (00:34)
[2022-12-03] MEDS: amLODIPine BESYLATE 5 MG TABLET (FP) PO SCH (10:25)
[2022-12-03] MEDS: LISINOPRIL 5 MG TABLET PO SCH (10:25)
[2022-12-03 13:54] VITALS: BMI 25.0
[2022-12-03] MEDS: RIVAROXABAN 15 MG TABLET PO SCH (17:46)
[2022-12-03] MEDS: HALOPERIDOL LACTATE 5 MG/ML IM PRN (21:07)
[2022-12-03] MEDS: MELATONIN 5 MG TABLETS PO SCH (21:39)
[2022-12-03] MEDS: ATORVASTATIN CA 20 MG TABLET (FP) PO SCH (21:39)
[2022-12-04] MEDS: LISINOPRIL 5 MG TABLET PO SCH (10:41)
[2022-12-04] MEDS: amLODIPine BESYLATE 5 MG TABLET (FP) PO SCH (10:41)
[2022-12-04 11:28] LABS: BASO % 0.5 % (0-2.0); EOS % 0.8 % (0-4.5); HEMATOCRIT 40.2 % (32.4-45.2); HEMOGLOBIN 13.7 GM/dL (10.7-15.3); LYMPH % 18.7 % (8-40); MCH 29.4 pg (25.7-33.7); MEAN CELL VOLUME 86.4 fl (80-96); MEAN PLT VOLUME 8.7 fl (7.5-11.1); MONO % 9.1 % (3.8-10.2); NEUT % 70.9 % (42.8-82.8); PLATELET COUNT 327 10^3/uL (134-434); RBC 4.65 M/mm3 (3.60-5.2); RDW 13.6 % (11.6-15.6); WHITE BLOOD COUNT 8.4 K/mm3 (4.0-10.0)
[2022-12-04 11:41] LABS: CALCIUM 10.2 mg/dL (8.5-10.1)
[2022-12-04 11:42] LABS: ALBUMIN 3.9 g/dl (3.4-5.0); BLOOD UREA NITROGEN 20.3 mg/dL (7-18)
[2022-12-04 11:45] LABS: CREATININE 0.8 mg/dL (0.55-1.3)
[2022-12-04 11:46] LABS: BILIRUBIN,TOTAL 1.3 mg/dL (0.2-1)
[2022-12-04] MEDS: RIVAROXABAN 15 MG TABLET PO SCH (17:07)
[2022-12-04] MEDS: HALOPERIDOL LACTATE 5 MG/ML IM PRN (21:18)
[2022-12-04] MEDS: MELATONIN 5 MG TABLETS PO SCH (21:18)
[2022-12-04] MEDS: ATORVASTATIN CA 20 MG TABLET (FP) PO SCH (21:18)
[2022-12-05 09:29] VITALS: BP 139/72; PULSE 87; RESP 18; TEMP 98.5
[2022-12-05] MEDS: LISINOPRIL 5 MG TABLET PO SCH (09:30)
[2022-12-05] MEDS: amLODIPine BESYLATE 5 MG TABLET (FP) PO SCH (09:30)
[2022-12-05] MEDS: HALOPERIDOL LACTATE 5 MG/ML IM PRN (09:30)
== END 2022-12-05 13:23 | disposition home health service (06) ==
LOC: JER 16:15 → JERBED 18:44 → J4W 23:39
PROVIDERS: ADMIT Internal Medicine; ATTEND Family Medicine
PROC: 3E023GC Introduction of Other Therapeutic Substance into Muscle, Percutaneous Approach (ICD-10-PCS; principal; 2022-12-01)
PROC: 3E023NZ Introduction of Analgesics, Hypnotics, Sedatives into Muscle, Percutaneous Approach (ICD-10-PCS; 2022-12-01)
PROC: 3E0337Z Introduction of Electrolytic and Water Balance Substance into Peripheral Vein, Percutaneous Approach (ICD-10-PCS; 2022-12-01)
DX: G30.9 Alzheimer's disease, unspecified (principal); F02.80 Dementia in other diseases classified elsewhere, unspecified severity, without behavioral disturbance, psychotic disturbance, mood disturbance, and anxiety; I48.91 Unspecified atrial fibrillation; I10 Essential (primary) hypertension; E78.5 Hyperlipidemia, unspecified; R42 Dizziness and giddiness; Z79.01 Long term (current) use of anticoagulants
CPT/HCPCS: 0241U-QW; 36415; 70450-TC; 70551-TC; 71046-TC-FY; 80053; 80061; 81003; 82550; 83605; 83690; 83735; 84100; 84443; 84484; 85025; 87086; 93005; 93010; 93306-TC; 93880-TC; 96360; 96372; 99285-25; G0378